=== PATIENT | male | born 1940 | race Caucasian/White ===

== ENCOUNTER 2018-03-12 11:12 | Inpatient (IN) | payer MEDICARE, BC ==
--- NOTE | 2018-03-12 12:45 | ED ---
General Adult HPI - General Chief complaint: Skin/Abscess/Foreign Body Stated complaint: Infection Time Seen by Provider: 03/12/18 12:01 Source: patient, RN notes reviewed Mode of arrival: ambulatory Limitations: no limitations - History of Present Illness Initial comments: Patient 78-year-old male presented to the emergency room today with a chief complaint of redness swelling to the right side of the abdominal wall. He does admit that symptoms started with a small bump approximately 6 weeks ago. He saw his doctor in [place]. He states had a MRI performed. He states that he is advised to follow up. He states he is currently up here for the summer and does have an appointment with general surgeon Dr. Boland in 3 days. Patient states that the area has become more red and more swollen and more painful. He has noticed some drainage that he has been putting some gauze because the closed were causing irritation. Patient denies any recent fever, chills, shortness of breath, chest pain, back pain, nausea or vomiting, numbness or tingling, dysuria or hematuria, constipation or diarrhea, headaches or visual changes, or any other complaints. - Related Data Home Medications Medication Instructions Recorded Confirmed Levothyroxine Sodium [Synthroid] 150 mcg PO DAILY 04/12/14 03/12/18 Lisinopril [Prinivil] 10 mg PO DAILY 04/12/14 03/12/18 Multivitamin [Men's Multi-Vitamin] 1 tab PO DAILY 04/12/14 03/12/18 Allergies Allergy/AdvReac Type Severity Reaction Status Date / Time No Known Allergies Allergy Verified 03/12/18 12:03 Review of Systems ROS Statement: Those systems with pertinent positive or pertinent negative responses have been documented in the HPI. ROS Other: All systems not noted in ROS Statement are negative. Past Medical History Past Medical History: Hypertension, Thyroid Disorder Additional Past Medical History / Comment(s): prostate cancer History of Any Multi-Drug Resistant Organisms: None Reported Past Surgical History: Cholecystectomy, Hernia Repair, Orthopedic Surgery Additional Past Surgical History / Comment(s): inguinal, partial thyroidectomy, bilateral knee replacement Past Anesthesia/Blood Transfusion Reactions: No Reported Reaction Past Psychological History: No Psychological Hx Reported Smoking Status: Former smoker Past Alcohol Use History: Occasional Past Drug Use History: None Reported General Exam - General Exam Comments Initial Comments: General: The patient is awake and alert, in no distress, and does not appear acutely ill. Eye: Pupils are equal, round and reactive to light, extra-ocular movements are intact. No nystagmus. There is normal conjunctiva bilaterally. No signs of icterus. Ears, nose, mouth and throat: There are moist mucous membranes and no oral lesions. Neck: The neck is supple, there is no tenderness or JVD. Cardiovascular: There is a regular rate and rhythm. No murmur, rub or gallop is appreciated. Respiratory: Lungs are clear to auscultation, respirations are non-labored, breath sounds are equal. No wheezes, stridor, rales, or rhonchi. Gastrointestinal: Patient does have abscess to the right side of the abdominal wall. Measures 8 cm across. There is firmness locally and surrounding the area. tender on exam. No rebound tenderness. No guarding. Musculoskeletal: Normal ROM, no tenderness. Strength 5/5. Sensation intact. Pulses equal bilaterally 2+. Neurological: A&O x 3. CN II-XII intact, There are no obvious motor or sensory deficits. Coordination appears grossly intact. Speech is normal. Skin: Skin is warm and dry and no rashes or lesions are noted. Psychiatric: Cooperative, appropriate mood & affect, normal judgment. Limitations: no limitations Course Vital Signs 03/12/18 03/12/18 11:32 14:01 Temperature 98.4 F Pulse Rate 69 53 L Respiratory 18 18 Rate Blood Pressure 113/67 140/73 O2 Sat by Pulse 99 100 Oximetry Medical Decision Making - Medical Decision Making Patient's CT abdomen and pelvis reviewed and shows 1. Large area of abdominal soft tissue density in the right upper quadrant along the lateral margin of the liver extending into a craniocaudal dimension of 15 cm. There also appears to be extension into the subcutaneous tissue measuring a maximum thickness 6.5 cm extends to the epidermis within the right upper quadrant. Skin thickening subcutaneous steamy are noted. However, it is reported dictating back to 2011 and appears increased in size therefore neoplasm should be considered in differential diagnosis. There is a noticeable increased size from prior exam 2011. Other etiologies include inflammatory conditions and superimposed cellulitis of foot well with small tiny central abscess measuring 1.8 cm. 2. Pathological adenopathy seen in the retroperitoneal and right iliac chain attenuation. Patient has seen Dr. Boland past for previous surgery. Have an appointment with his office this coming Tuesday. Patient states that he came in because there was increased pain and some drainage. He felt that he could not wait any longer for this. Patient's labs been reviewed. Patient started on antibiotics of Zosyn. Case discussed with attending physician Dr. Garcia clinic to discuss case with admitting physician Dr. Boland admit the patient. - Lab Data Result diagrams: 03/12/18 12:44 03/12/18 12:44 Lab Results 03/12/18 03/12/18 03/12/18 Range/Units 12:44 12:44 12:44 WBC 8.4 (3.8-10.6) k/uL RBC 4.81 (4.30-5.90) m/uL Hgb 11.9 L (13.0-17.5) gm/dL Hct 37.9 L (39.0-53.0) % MCV 78.7 L (80.0-100.0) fL MCH 24.7 L (25.0-35.0) pg MCHC 31.4 (31.0-37.0) g/dL RDW 16.6 H (11.5-15.5) % Plt Count 267 (150-450) k/uL Neutrophils % 86 % Lymphocytes % 8 % Monocytes % 4 % Eosinophils % 1 % Basophils % 0 % Neutrophils # 7.2 (1.3-7.7) k/uL Lymphocytes # 0.7 L (1.0-4.8) k/uL Monocytes # 0.3 (0-1.0) k/uL Eosinophils # 0.1 (0-0.7) k/uL Basophils # 0.0 (0-0.2) k/uL Hypochromasia Moderate Anisocytosis Slight Microcytosis Slight ESR 44 H (0-15) mm/hr Sodium 140 (137-145) mmol/L Potassium 4.6 (3.5-5.1) mmol/L Chloride 102 (98-107) mmol/L Carbon Dioxide 26 (22-30) mmol/L Anion Gap 12 mmol/L BUN 28 H (9-20) mg/dL Creatinine 1.20 (0.66-1.25) mg/dL Est GFR (CKD-EPI)AfAm 67 (>60 ml/min/1.73 sqM) Est GFR (CKD-EPI)NonAf 58 (>60 ml/min/1.73 sqM) Glucose 86 (74-99) mg/dL Calcium 9.4 (8.4-10.2) mg/dL Total Bilirubin 0.3 (0.2-1.3) mg/dL AST 21 (17-59) U/L ALT 27 (21-72) U/L Alkaline Phosphatase 84 (38-126) U/L C-Reactive Protein 50.9 H (<10.0) mg/L Total Protein 7.0 (6.3-8.2) g/dL Albumin 3.8 (3.5-5.0) g/dL Urine Color Yellow Urine Appearance Clear (Clear) Urine pH 6.0 (5.0-8.0) Ur Specific [place] 1.020 (1.001-1.035) Urine Protein Negative (Negative) Urine Glucose (UA) Negative (Negative) Urine Ketones Negative (Negative) Urine Blood Negative (Negative) Urine Nitrite Negative (Negative) Urine Bilirubin Negative (Negative) Urine Urobilinogen <2.0 (<2.0) mg/dL Ur Leukocyte Esterase Negative (Negative) Disposition Clinical Impression: Abdominal abscess Disposition: ADMITTED IP TO THIS HOSP Condition: Stable Referrals: Narinder Mendez MD [Primary Care Provider] - 1-2 days Time of Disposition: 15:12
[2018-03-12 12:58] LABS: Anisocytosis Slight; Basophils % (A) 0 %; Eosinophils # (A) 0.1 k/uL (0-0.7); Eosinophils % (A) 1 %; HCT 37.9 % (39.0-53.0); HGB 11.9 gm/dL (13.0-17.5); Hypochromasia Moderate; Lymphocytes # (A) 0.7 k/uL (1.0-4.8); Lymphocytes % (A) 8 %; MCH 24.7 pg (25.0-35.0); MCHC 31.4 g/dL (31.0-37.0); MCV 78.7 fL (80.0-100.0); Mean Platelet Volume 6.1; Microcytosis Slight; Monocytes # (A) 0.3 k/uL (0-1.0); Monocytes % (A) 4 %; Neutrophils # (A) 7.2 k/uL (1.3-7.7); Neutrophils % (A) 86 %; Platelet Count 267 k/uL (150-450); RBC 4.81 m/uL (4.30-5.90); RDW 16.6 % (11.5-15.5); WBC 8.4 k/uL (3.8-10.6)
[2018-03-12 13:01] LABS: Appearance,Urine Clear (Clear); Bilirubin,Urine Negative (Negative); Blood,Urine Negative (Negative); Color,Urine Yellow; Glucose,Urine (UA) Negative (Negative); Ketones,Urine Negative (Negative); Leukocyte Esterase,Urine Negative (Negative); Nitrite,Urine Negative (Negative); Protein,Urine Negative (Negative); Urobilinogen,Urine <2.0 mg/dL (<2.0)
[2018-03-12 13:23] LABS: Albumin 3.8 g/dL (3.5-5.0); C Reactive Protein 50.9 mg/L (<10.0); Calcium 9.4 mg/dL (8.4-10.2); Potassium 4.6 mmol/L (3.5-5.1); Total Bilirubin 0.3 mg/dL (0.2-1.3)
--- NOTE | 2018-03-12 14:11 | CT ---
EXAMINATION TYPE: CT abdomen pelvis w con DATE OF EXAM: 03/12/2018 COMPARISON: 02/17/2012 HISTORY: Right sided mid abdominal swelling with redness CT DLP: 910.8 mGycm Automated exposure control for dose reduction was used. CONTRAST: CT scan of the abdomen pelvis is performed with IV Contrast, patient injected with 80 mL of Isovue 30 0. FINDINGS- LUNG BASES- No significant abnormality is appreciated. LIVER/GB-postcholecystectomy changes noted.. PANCREAS- No gross abnormality is seen. SPLEEN- No gross abnormality is seen. ADRENALS- No gross abnormality is seen. KIDNEYS/BLADDER-11 cm simple left renal cyst noted. Additional hypodense lesions within both kidneys are most likely related to simple cyst. BOWEL-bowel gas pattern nonspecific. Hiatal hernia noted.. LYMPH NODES-there is pathologic adenopathy in the retroperitoneum measuring a short axis of 2.1 cm wi th numerous lymph nodes in the periaortic region. Pathologic adenopathy in the right iliac chain is a lso noted. Correlate for history of malignancy. 3. There is mild induration of the fat within the right lower quadrant. This is seen adjacent to the area of adenopathy. Appendix is not seen with certainty. Correlate clinically for right lower quadran t inflammatory process.. There also appears to be abnormal soft tissue attenuation along the periumbilical region measuring 1. 4 cm in short axis. This appears separate from the bowel and may represent additional area of adenopa thy or mass. OSSEOUS STRUCTURES-degenerative change of the spine noted.. Facet arthropathy and disc bulging sugges t multilevel canal stenosis. OTHER- there is soft tissue edema overlying the right upper quadrant subcutaneous tissues extending into the musculature. This does extend adjacent to the liver. Tiny fluid component centrally measures 1.8 cm however the area of abnormal soft tissue extends a craniocaudal dimension of 15 cm. Evidence of previous prostate intervention noted. There is soft tissue fullness in the right iliac chain fatoumata tible with pathologic adenopathy measuring 2 cm in short axis. Additional larger lymph node also in t he iliac chain measuring a short axis of 2.6 cm. There is mild induration of the fat suggestive of mi ld inflammatory change. Appendix not seen. IMPRESSION- 1. Large area of abnormal soft tissue density in the right upper quadrant along the lateral margin of the liver extending a craniocaudal dimension of 15 cm. There also appears to be extension into the s ubcutaneous tissues measuring a maximal thickness of 6.5 cm extends to the epidermis within the right upper quadrant. Skin thickening and subcutaneous edema are noted. However, it has been reported dati ng back to 02/07/2012 and appears increased in size therefore neoplasm should be considered in the diff erential diagnosis. There is a noticeable increase in size from the prior exam 2011. Other etiologies include inflammatory conditions and superimposed cellulitis or phlegmon with small tiny central absc ess measuring 1.8 cm. Alternatively this could represent a small area of central necrosis of a neopla sm. 2. Pathologic adenopathy seen in the retroperitoneum and right iliac chain attenuation. Correlate for history of malignancy. 3. Large hiatal hernia
[2018-03-12 14:15] LABS: Erythrocyte Sedimentation Rate 44 mm/hr (0-15)
[2018-03-12] MEDS ORDERED: PIPERACILLIN-TAZOBACTAM 3.375 GM in DEXTROSE/WATER 1 50ML.BAG IVPB STA (14:22)
[2018-03-12] MEDS ORDERED: MORPHINE SULFATE 2 MG/ML SYRINGE IV PRN (15:13)
[2018-03-12] MEDS ORDERED: ONDANSETRON 4 MG/2 ML VIAL IVP PRN (15:13)
[2018-03-12] MEDS ORDERED: SODIUM CHLORIDE 0.9% 1,000 ML IV ONE (15:13)
[2018-03-12] MEDS ORDERED: NALOXONE 0.4 MG/ML 1 ML VIAL IV PRN (15:13)
--- NOTE | 2018-03-12 16:14 | US ---
EXAMINATION TYPE: US abdomen limited DATE OF EXAM: 03/12/2018 COMPARISON: CT 03/12/2018 CLINICAL HISTORY: Pain. Patient has a palpable red lump on his right side. It is extremely tender to the touch. Patient would only allow me to scan at the area of redness for a short time due to pain. t his limited the exam EXAM MEASUREMENTS: Liver Length: 13.0 cm Gallbladder Wall: Surgically absent CBD: 0.9 cm Right Kidney: 10.4 x 5.1 x 5.2 cm Pancreas: Obscured by bowel gas Liver: wnl as visualized Gallbladder: Surgically absent Evidence for sonographic Arreguin's sign: No CBD: wnl post cholecystectomy Right Kidney: Cystic area visualized mid pole measuring 1.2 x 1.6 cm. Unable to visualized in transv erse due to rib shadowing Lateral to the liver, there is a heterogeneous area visualized measuring 14.3 cm. There is some vascu larity within. This area is difficult to visualize with ultrasound. Directly at the area of the patie nt's palpable lump, there appears to be a heterogeneous, hypervascular area visualized. 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 Internal foci of necrosis or fluid is seen on CT is not demonstrated on ultra sound. Percutaneous biopsy could be performed. This is suboptimally imaged due to patient pain and wa s not accurately measured.
[2018-03-12 17:08] VITALS: BMI 26.4
[2018-03-12] MEDS ORDERED: KETOROLAC 30 MG/ML 1 ML VIAL ONE (23:31)
[2018-03-12] MEDS: PIPERACILLIN-TAZOBACTAM 3.375 GM in DEXTROSE/WATER 1 50ML.BAG IVPB SCH (23:37)
[2018-03-13] MEDS: PIPERACILLIN-TAZOBACTAM 3.375 GM in DEXTROSE/WATER 1 50ML.BAG IVPB SCH ×2 (06:19→14:29)
[2018-03-13] MEDS: KETOROLAC 30 MG/ML 1 ML VIAL IVP SCH ×3 (06:19→19:48)
--- NOTE | 2018-03-13 07:18 | P.GSCN ---
History of Present Illness Consult date: 03/13/18 Reason for Consult: Right upper quadrant mass History of present illness: Patient known to our service. He actually has an appointment to see me this coming Tuesday. I spoke with Dr. Santiago about this patient 1-2 weeks ago. In the past we removed a small abdominal wall mass in the left upper quadrant. I don't have those records available to me. Patient states that was benign at that time. He was in [place] when he started noticing a bulge in the right upper quadrant. That was about 6-8 weeks ago. It is enlarging. Over the last week or so there is been increasing redness and now drainage over the last few days. He was also being followed by urology for an elevated prostate specific antigen level. CAT scan performed while he was in [place] showed this mass in the right upper quadrant and retroperitoneal adenopathy. The recent CAT scan shows the mass extending from the perihepatic region through the abdominal wall to the skin level. It is painful. No fevers. White blood cell count normal. Sed rate and CRP both elevated. T-max 99. Review of Systems The patient denies any acute changes in vision or hearing, no dysphagia or odynophagia, no chest pain or shortness of breath, no dysuria or hematuria, no headache, no runny nose, no rectal bleeding or melena, no unexplained weight loss Past Medical History Past Medical History: Hypertension, Thyroid Disorder Additional Past Medical History / Comment(s): prostate cancer with seeds History of Any Multi-Drug Resistant Organisms: None Reported Past Surgical History: Cholecystectomy, Hernia Repair, Orthopedic Surgery Additional Past Surgical History / Comment(s): inguinal, partial thyroidectomy, bilateral knee replacement Past Anesthesia/Blood Transfusion Reactions: No Reported Reaction Past Psychological History: No Psychological Hx Reported Smoking Status: Former smoker Past Alcohol Use History: Occasional Past Drug Use History: None Reported Medications and Allergies Home Medications Medication Instructions Recorded Confirmed Type Levothyroxine Sodium [Synthroid] 150 mcg PO DAILY 04/12/14 03/12/18 History Lisinopril [Prinivil] 10 mg PO DAILY 04/12/14 03/12/18 History Multivitamin [Men's Multi-Vitamin] 1 tab PO DAILY 04/12/14 03/12/18 History Allergies Allergy/AdvReac Type Severity Reaction Status Date / Time No Known Allergies Allergy Verified 06/10/18 16:15 Surgical - Exam Vital Signs Temp Pulse Resp BP Pulse Ox 98.4 F 69 18 113/67 99 03/12/18 11:32 03/12/18 11:32 03/12/18 11:32 03/12/18 11:32 03/12/18 11:32 Physical exam: General: Well-developed, well-nourished HEENT: Normocephalic, sclerae nonicteric Abdomen: Mass right upper quadrant with erythema and several areas of purulent drainage, mildly tender, nondistended Extremities: No edema Neuro: Alert and oriented Results - Labs 03/12/18 12:44 03/12/18 12:44 Abnormal Lab Results - Last 24 Hours (Table) 03/12/18 03/12/18 Range/Units 12:44 12:44 Hgb 11.9 L (13.0-17.5) gm/dL Hct 37.9 L (39.0-53.0) % MCV 78.7 L (80.0-100.0) fL MCH 24.7 L (25.0-35.0) pg RDW 16.6 H (11.5-15.5) % Lymphocytes # 0.7 L (1.0-4.8) k/uL ESR 44 H (0-15) mm/hr BUN 28 H (9-20) mg/dL C-Reactive Protein 50.9 H (<10.0) mg/L Diabetes panel 03/12/18 Range/Units 12:44 Sodium 140 (137-145) mmol/L Potassium 4.6 (3.5-5.1) mmol/L Chloride 102 (98-107) mmol/L Carbon Dioxide 26 (22-30) mmol/L BUN 28 H (9-20) mg/dL Creatinine 1.20 (0.66-1.25) mg/dL Glucose 86 (74-99) mg/dL Calcium 9.4 (8.4-10.2) mg/dL AST 21 (17-59) U/L ALT 27 (21-72) U/L Alkaline Phosphatase 84 (38-126) U/L Total Protein 7.0 (6.3-8.2) g/dL Albumin 3.8 (3.5-5.0) g/dL Calcium panel 03/12/18 Range/Units 12:44 Calcium 9.4 (8.4-10.2) mg/dL Albumin 3.8 (3.5-5.0) g/dL Pituitary panel 03/12/18 Range/Units 12:44 Sodium 140 (137-145) mmol/L Potassium 4.6 (3.5-5.1) mmol/L Chloride 102 (98-107) mmol/L Carbon Dioxide 26 (22-30) mmol/L BUN 28 H (9-20) mg/dL Creatinine 1.20 (0.66-1.25) mg/dL Glucose 86 (74-99) mg/dL Calcium 9.4 (8.4-10.2) mg/dL Adrenal panel 03/12/18 Range/Units 12:44 Sodium 140 (137-145) mmol/L Potassium 4.6 (3.5-5.1) mmol/L Chloride 102 (98-107) mmol/L Carbon Dioxide 26 (22-30) mmol/L BUN 28 H (9-20) mg/dL Creatinine 1.20 (0.66-1.25) mg/dL Glucose 86 (74-99) mg/dL Calcium 9.4 (8.4-10.2) mg/dL Total Bilirubin 0.3 (0.2-1.3) mg/dL AST 21 (17-59) U/L ALT 27 (21-72) U/L Alkaline Phosphatase 84 (38-126) U/L Total Protein 7.0 (6.3-8.2) g/dL Albumin 3.8 (3.5-5.0) g/dL Assessment and Plan (1) Abdominal wall mass Current Visit: Yes Status: Acute Code(s): R22.2 - LOCALIZED SWELLING, MASS AND LUMP, TRUNK SNOMED Code(s): 224624428 (2) Abdominal wall mass of right upper quadrant Narrative/Plan: Options discussed with the patient and his family. We'll proceed with incision and drainage and biopsy of this abdominal wall mass given the purulent drainage identified. It is possible that this is a necrotizing tumor that has become secondarily infected. We'll also consult oncology at this time. Surgery will be scheduled for this afternoon. Risks of bleeding, infection, poor healing, and pain were reviewed. He understands and wishes to proceed. Current Visit: Yes Status: Acute Code(s): R19.01 - RIGHT UPPER QUADRANT ABDOMINAL SWELLING, MASS AND LUMP SNOMED Code(s): 643722339
[2018-03-13 08:26] LABS: Anisocytosis Slight; Basophils % (A) 0 %; Eosinophils % (A) 0 %; HCT 34.3 % (39.0-53.0); HGB 10.4 gm/dL (13.0-17.5); Hypochromasia Slight; Lymphocytes # (A) 0.6 k/uL (1.0-4.8); Lymphocytes % (A) 8 %; MCHC 30.4 g/dL (31.0-37.0); MCV 78.9 fL (80.0-100.0); Microcytosis Slight; Monocytes # (A) 0.3 k/uL (0-1.0); Monocytes % (A) 4 %; Neutrophils % (A) 86 %; Platelet Count 240 k/uL (150-450); RBC 4.35 m/uL (4.30-5.90); RDW 16.4 % (11.5-15.5); WBC 8.1 k/uL (3.8-10.6)
[2018-03-13 08:31] LABS: Albumin 2.9 g/dL (3.5-5.0); Calcium 8.9 mg/dL (8.4-10.2); Potassium 4.5 mmol/L (3.5-5.1); Total Bilirubin 0.7 mg/dL (0.2-1.3); Total Protein 5.6 g/dL (6.3-8.2)
[2018-03-13] MEDS: MORPHINE SULFATE 2 MG/ML SYRINGE IVP PRN ×2 (10:43→17:28)
--- NOTE | 2018-03-13 11:24 | P.HPIM ---
History of Present Illness H&P Date: 03/13/18 Chief Complaint: abdominal wall abscess 78-year-old male who presented to the emergency room with a chief complaint of increasing pain and redness to a abdominal mass. The patient reports he noticed a small red bump to his right upper abdominal quadrant about 6-8 weeks ago. The patient has been living in [place]. He states he saw a physician assistant professor of spanish down there and he was advised to follow-up when he returns to [place]. He reports increased pain and tenderness of the area, increased swelling, increased erythema, and purulent drainage. He states he had an appointment to see Dr. Boland on 03/15/2018 but the pain was so significant that he presented to the emergency room for further evaluation. He reports having a small mass of his left lower quadrant that was removed by Dr. Boland a few years ago. The patient also reports he follows outpatient with a urologist for elevated PSA. The patient does report a recent weight loss of approximately 10 pounds. The patient has a history of hypertension and hypothyroidism. He reports cataract surgery 2 weeks ago of his right eye. Surgical history also includes inguinal hernia repair and bilateral knee replacements. The patient is a former cigarette smoker. CT abdomen and pelvis: Large area of abnormal soft tissue density in the right upper quadrant along the lateral margin of the the liver measuring 15 cm. There also appears to be extension into the subcutaneous tissues measuring a maximum thickness of 6.5 cm extends to the epidermis within the right upper quadrant. Skin thickening and subcutaneous edema are noted. However it has been reported dating back to 02/07/2012 and appears increased in size therefore neoplasm should be considered in the differential diagnosis. Pathologic adenopathy seen in the retroperitoneum and right iliac chain attenuation. Large hiatal hernia. Laboratory data: WBC 8.4. Hemoglobin 11.9. Platelet count 267. Sodium 140. Potassium 4.6. BUN 28. Creatinine 1.20. ESR 44. C-reactive protein 50.9. Urinalysis is unremarkable. The patient was admitted to the hospital under the care of Dr. Mendez. Consultations were placed to Dr. Boland. Review of Systems GENERAL: Patient denies fever. Denies chills. EYES: Denies blurred vision. Denies vision changes. Denies eye pain. EARS, NOSE, MOUTH, & THROAT: Denies headache. Denies sore throat. Denies ear pain. RESPIRATORY: Denies cough. Denies shortness of breath. Denies sputum production. Denies hemoptysis. CARDIOVASCULAR: Denies chest pain or pressure. Denies palpitations. Denies arrhythmias. GASTROINTESTINAL: Denies abdominal pain. Denies diarrhea. Denies constipation. Denies nausea. Denies vomiting. Denies heartburn. Denies blood in the stool. GENITOURINARY: Denies urinary frequency. Denies burning. Denies dysuria. Denies cloudy urine. Denies blood in the urine. MUSCULOSKELETAL: Denies myalgias. Denies joint swelling. Denies decreased range of motion beyond patients baseline. INTEGUMENTARY: Positive for mass of right upper quadrant. Reports increased swelling, pain, tenderness, and purulent drainage. PSYCHIATRIC: Denies suicidal or homicial ideations. ENDOCRINE: Denies weight change. Denies polydipsia. Denies polyuria. HEMATOLOGIC: Denies bleeding disorders. Past Medical History Past Medical History: Hypertension, Thyroid Disorder Additional Past Medical History / Comment(s): prostate cancer with seeds History of Any Multi-Drug Resistant Organisms: None Reported Past Surgical History: Cholecystectomy, Hernia Repair, Orthopedic Surgery Additional Past Surgical History / Comment(s): inguinal, partial thyroidectomy, bilateral knee replacement Past Anesthesia/Blood Transfusion Reactions: No Reported Reaction Past Psychological History: No Psychological Hx Reported Smoking Status: Former smoker Past Alcohol Use History: Occasional Past Drug Use History: None Reported Medications and Allergies Home Medications Medication Instructions Recorded Confirmed Type Levothyroxine Sodium [Synthroid] 150 mcg PO DAILY 04/12/14 03/12/18 History Lisinopril [Prinivil] 10 mg PO DAILY 04/12/14 03/12/18 History Multivitamin [Men's Multi-Vitamin] 1 tab PO DAILY 04/12/14 03/12/18 History Allergies Allergy/AdvReac Type Severity Reaction Status Date / Time No Known Allergies Allergy Verified 03/12/18 16:15 Physical Exam Vitals: Vital Signs Temp Pulse Pulse Resp BP BP Pulse Ox 03/13/18 01:55 98.9 F 65 16 117/63 96 03/12/18 19:56 99.0 F 64 16 136/77 97 03/12/18 16:31 97.9 F 54 L 18 135/75 99 03/12/18 14:01 53 L 18 140/73 100 03/12/18 11:32 98.4 F 69 18 113/67 99 Intake and Output 03/12/18 03/13/18 03/13/18 22:59 06:59 14:59 Intake Total 620 470 Balance 620 470 Intake: Intake, IV Titration 620 470 Amount Piperacillin-Tazobactam 3 50 50 .375 gm In Dextrose/Water 1 50ml.bag @ 12.5 mls/hr IVPB Q8H [facility] Rx#: [id number] Sodium Chloride 0.9% 1, 570 420 000 ml @ 100 mls/hr IV . Q10H [facility] Rx#:[id number] Other: Voiding Method Toilet # Voids 3 1 # Bowel Movements 0 0 Weight 88.451 kg GENERAL: This is a 78-year-old male in no apparent distress at the time of examination. Pleasant and cooperative. HEENT: Head is atraumatic, normocephalic. Pupils are equal, round, and reactive to light. Sclerae anicteric. Conjunctivae are clear. Mucus membranes of the mouth are moist. Neck is supple. RESPIRATORY: Clear to ausculation. No wheezes, rales, or rhonchi. No use of accessory muscles. Patient maintaining oxygen saturation greater than 92%. No chest wall tenderness is noted on palpation or with deep breathing. CARDIOVASCULAR: Regular rate and rhythm. S1 and S2 noted. No systolic or diastolic murmur auscultated. No JVD noted. No S3 or S4 noted. GASTROINTESTINAL: No distention noted. Abdomen soft and round. Normal active bowel sounds auscultated x 4 quadrants. No pain or tenderness noted upon palpation. INTEGUMENTARY: Large abscess visualized to right upper quadrant with surrounding erythema and edema. Abscess is firm to palpation. Surrounding tissue is also firm to palpation. Pain and tenderness is noted upon palpation of abscess. Areas of purulent drainage are noted. EXTREMITIES: Numerous varicose veins visualized. 2+ peripheral pulses. No evidence of peripheral edema. No calf tenderness noted. NEUROLOGIC: Cranial nerves II-XII intact. PSYCHIATRIC: Awake, alert, and oriented X 3. Appropriate affect. Intact judgement and insight. Results CBC & Chem 7: 03/13/18 07:44 03/13/18 07:44 Labs: Abnormal Lab Results - Last 24 Hours (Table) 03/12/18 03/12/18 03/13/18 Range/Units 12:44 12:44 07:44 Hgb 11.9 L 10.4 L (13.0-17.5) gm/dL Hct 37.9 L 34.3 L (39.0-53.0) % MCV 78.7 L 78.9 L (80.0-100.0) fL MCH 24.7 L 24.0 L (25.0-35.0) pg MCHC 30.4 L (31.0-37.0) g/dL RDW 16.6 H 16.4 H (11.5-15.5) % Lymphocytes # 0.7 L 0.6 L (1.0-4.8) k/uL ESR 44 H (0-15) mm/hr BUN 28 H (9-20) mg/dL Creatinine (0.66-1.25) mg/dL AST (17-59) U/L C-Reactive Protein 50.9 H (<10.0) mg/L Total Protein (6.3-8.2) g/dL Albumin (3.5-5.0) g/dL 03/13/18 Range/Units 07:44 Hgb (13.0-17.5) gm/dL Hct (39.0-53.0) % MCV (80.0-100.0) fL MCH (25.0-35.0) pg MCHC (31.0-37.0) g/dL RDW (11.5-15.5) % Lymphocytes # (1.0-4.8) k/uL ESR (0-15) mm/hr BUN 27 H (9-20) mg/dL Creatinine 1.28 H (0.66-1.25) mg/dL AST 15 L (17-59) U/L C-Reactive Protein (<10.0) mg/L Total Protein 5.6 L (6.3-8.2) g/dL Albumin 2.9 L (3.5-5.0) g/dL Thrombosis Risk Factor Assmnt - Choose All That Apply Any of the Below Risk Factors Present?: No Other Risk Factors: No Thrombosis Risk Factor Assessment Level: Very Low Risk Assessment and Plan Plan: ASSESSMENT: Right upper quadrant abscess, patient to undergo I&D today History of benign left abdominal wall mass, removed by Dr. 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 Boland on consult. Appreciate recommendations and input Patient to undergo I&D today with Dr Boland Continue antibiotics: Zosyn Pain control Oncology consulted. Await further input Home meds as appropriate Monitor labs GI prophylaxis: Protonix 40 mg PO Daily DVT prophylaxis: NAKITA hose to bilateral LE Monitor vital signs and address as appropriate Discharge planning: Patient to return home when stable Further recommendations pending patient's course Nurse practitioner note has been reviewed by physician. Signing provider agrees with the documented findings, assessment, and plan of care.
--- NOTE | 2018-03-13 16:19 | P.CONS ---
History of Present Illness - Reason for Consult Consult date: 03/13/18 Concerning abscess Requesting physician: Mathew Boland - Chief Complaint Abdominal abscess - History of Present Illness 78-year-old male who presented to the emergency room with a chief complaint of increasing abdominal pain and redness to an area of abdomen. The patient reports he noticed a small bump about 6 weeks ago. The bump was non- tender and didnt cause any problems, then it bagan to become redder. The "bump grew in size, broke through skin and now causing pain. He has lost approximately 10lbs in the past 6 months, has been living in [place]. He has a known history of prostate cancer in which he underwent radioactive seeding and external radiation. CT abdomen and pelvis was reviewed: Showed a Large area of abnormal soft tissue density in the right upper quadrant along the lateral margin of the the liver measuring 15 cm. There also appears to be extension into the subcutaneous tissues measuring a maximum thickness of 6.5 cm extends to the epidermis within the right upper quadrant. Soft Tissue density was monitored since 2011, although now with increased size hematology and oncology have been consulted related to concern for underlying malignancy. Review of Systems A 14 point review of systems assessed and completed and all negative except HPI Past Medical History Past Medical History: Hypertension, Thyroid Disorder Additional Past Medical History / Comment(s): prostate cancer with seeds History of Any Multi-Drug Resistant Organisms: None Reported Past Surgical History: Cholecystectomy, Hernia Repair, Orthopedic Surgery Additional Past Surgical History / Comment(s): inguinal, partial thyroidectomy, bilateral knee replacement Past Anesthesia/Blood Transfusion Reactions: No Reported Reaction Past Psychological History: No Psychological Hx Reported Smoking Status: Former smoker Past Alcohol Use History: Occasional Past Drug Use History: None Reported Medications and Allergies Home Medications Medication Instructions Recorded Confirmed Type Levothyroxine Sodium [Synthroid] 150 mcg PO DAILY 04/12/14 03/12/18 History Lisinopril [Prinivil] 10 mg PO DAILY 04/12/14 03/12/18 History Multivitamin [Men's Multi-Vitamin] 1 tab PO DAILY 04/12/14 03/12/18 History Allergies Allergy/AdvReac Type Severity Reaction Status Date / Time No Known Allergies Allergy Verified 03/12/18 16:15 Physical Exam Vitals: Vital Signs Temp Pulse Resp BP Pulse Ox 03/13/18 15:00 97.9 F 54 L 18 117/72 97 03/13/18 07:00 97.6 F 56 L 18 117/68 97 03/13/18 01:55 98.9 F 65 16 117/63 96 03/12/18 19:56 99.0 F 64 16 136/77 97 03/12/18 16:31 97.9 F 54 L 18 135/75 99 Intake and Output 03/13/18 03/13/18 03/13/18 06:59 14:59 22:59 Intake Total 470 Balance 470 Intake: Intake, IV Titration 470 Amount Piperacillin-Tazobactam 3 50 .375 gm In Dextrose/Water 1 50ml.bag @ 12.5 mls/hr IVPB Q8H [facility] Rx#: [id number] Sodium Chloride 0.9% 1, 420 000 ml @ 100 mls/hr IV . Q10H [facility] Rx#:[id number] Other: Voiding Method Toilet # Voids 1 3 # Bowel Movements 0 - Constitutional General appearance: average body habitus, cooperative, no acute distress - EENT Eyes: EOMI, PERRLA, dentition normal ENT: hard of hearing, NA/AT, normal oropharynx - Neck Supple trachea midline - Respiratory Respiratory: bilateral: CTA (No increased effort) - Cardiovascular Rhythm: regular Heart sounds: normal: S1, S2 - Gastrointestinal General gastrointestinal: normal bowel sounds, soft, tenderness - Integumentary RUQ abdomen large hard palpable area of abscess like mass protruding through skin - Neurologic Neurologic: CNII-XII intact - Musculoskeletal Musculoskeletal: gait normal, generalized weakness, strength equal bilaterally - Psychiatric Psychiatric: A&O x's 3, appropriate affect, intact judgment & insight Results CBC & Chem 7: 03/13/18 07:44 03/13/18 07:44 Labs: Abnormal Lab Results - Last 24 Hours (Table) 03/13/18 03/13/18 Range/Units 07:44 07:44 Hgb 10.4 L (13.0-17.5) gm/dL Hct 34.3 L (39.0-53.0) % MCV 78.9 L (80.0-100.0) fL MCH 24.0 L (25.0-35.0) pg MCHC 30.4 L (31.0-37.0) g/dL RDW 16.4 H (11.5-15.5) % Lymphocytes # 0.6 L (1.0-4.8) k/uL BUN 27 H (9-20) mg/dL Creatinine 1.28 H (0.66-1.25) mg/dL AST 15 L (17-59) U/L Total Protein 5.6 L (6.3-8.2) g/dL Albumin 2.9 L (3.5-5.0) g/dL Microbiology - Last 24 Hours (Table) 03/12/18 12:44 Blood Culture - Preliminary Blood No Growth after 24 hours Assessment and Plan Plan: Assessment and Recommendations: 1. Right Abdominal Skin Mass with soft tissue density in liver (increased in size from imaging 2011) - Await I and D and await biopsy results, Depending on results further oncological recs will be provided 2. Microcytic Anemia - Anemia work-up with Iron, B12, Folate, Retics, Ferritin, 3. History of Prostate Cancer - XRT Physician Attestation: I have COmpleted the full history and physcial of this patient and agree with dictation by Brenda Yoon, Dictated as a scribe.
[2018-03-13] MEDS ORDERED: LIDOCAINE 1% INJ 10MG/ML (20 ML MDV) ONE (19:50)
[2018-03-13] MEDS ORDERED: SUCCINYLCHOLINE CHLORIDE 100 MG/5 ML SYR IV ONE (19:50)
[2018-03-13] MEDS ORDERED: PROPOFOL 10 MG/ML 20 ML VIAL IV ONE (19:50)
[2018-03-13] MEDS ORDERED: LACTATED RINGERS 1,000 ML IV ONE (19:50)
[2018-03-13] MEDS ORDERED: fentaNYL (PF) 50 MCG/ML 2 ML AMP ONE (19:50)
[2018-03-13] MEDS ORDERED: ePHEDrine SULFATE/0.9% NACL/PF 50 MG/5 ML SYRINGE IV ONE (19:50)
[2018-03-13] MEDS ORDERED: MIDAZOLAM 2 MG/2 ML VIAL ONE (19:50)
[2018-03-13] MEDS ORDERED: ONDANSETRON 4 MG/2 ML VIAL ONE (19:50)
[2018-03-13] MEDS ORDERED: ceFAZolin 1,000 MG/50 ML BAG (PMX) IVPB ONE (20:10)
[2018-03-13] MEDS: MORPHINE SULFATE 4MG/4ML SYRG IVP ONE ×2 (20:55→21:05)
[2018-03-13] MEDS ORDERED: KETOROLAC 30 MG/ML 1 ML VIAL IVP SCH (21:04)
[2018-03-13] MEDS ORDERED: KETOROLAC 30 MG/ML 1 ML VIAL IVP ONE (21:08)
--- NOTE | 2018-03-13 21:42 | P.OP ---
Date of Procedure: 03/13/18 Procedure(s) Performed: PREOPERATIVE DIAGNOSIS: Abdominal wall mass POSTOPERATIVE DIAGNOSIS: Same PROCEDURE: Incision, drainage, and biopsy abdominal wall mass SURGEON: Kya EBL: 10 mL ANESTHESIA: Gen. COMPLICATIONS: None OPERATIVE PROCEDURE: Patient was placed never table in the supine position for the patient was placed under general anesthesia. The right upper quadrant region was prepped and draped in usual sterile fashion. An elliptical incision was made encompassing the skin where there was small pustules present. Dissection through the subcutaneous tissues took place sharply with a scalpel. The tissues underneath the skin did contain some purulence that was cultured. Incision length was approximately 10 cm with a width of 2 cm. The tissue in the subcutaneous tissues appeared neoplastic visibly. The area was debrided and further tissue was sent for biopsy in addition to the initial portion. Bleeding was controlled using electrocautery. There was no obvious extension into the abdomen at this time. The wound was then packed with wet-to-dry Jan roll. DISPOSITION: Stable to recovery room
[2018-03-14] MEDS: KETOROLAC 30 MG/ML 1 ML VIAL IVP SCH ×5 (00:04→23:39)
[2018-03-14] MEDS: PIPERACILLIN-TAZOBACTAM 3.375 GM in DEXTROSE/WATER 1 50ML.BAG IVPB SCH ×4 (00:05→22:35)
[2018-03-14] MEDS: SODIUM CHLORIDE 0.9% 1,000 ML IV SCH ×3 (01:45→22:34)
[2018-03-14] MEDS: LEVOTHYROXINE 75 MCG TAB PO SCH (06:34)
[2018-03-14] MEDS: PANTOPRAZOLE 40 MG TABLET PO SCH (09:58)
[2018-03-14] MEDS: LISINOPRIL 10 MG TAB PO SCH (09:58)
--- NOTE | 2018-03-14 10:30 | P.PN ---
Subjective Progress Note Date: 03/14/18 78-year-old male who presented to the emergency room with a chief complaint of increasing pain and redness to a abdominal mass. The patient reports he noticed a small red bump to his right upper abdominal quadrant about 6-8 weeks ago. The patient has been living in [place]. He states he saw a physician health education assistant down there and he was advised to follow-up when he returns to [place]. He reports increased pain and tenderness of the area, increased swelling, increased erythema, and purulent drainage. He states he had an appointment to see Dr. Boland on 03/15/2018 but the pain was so significant that he presented to the emergency room for further evaluation. He reports having a small mass of his left lower quadrant that was removed by Dr. Boland a few years ago. The patient also reports he follows outpatient with a urologist for elevated PSA. The patient does report a recent weight loss of approximately 10 pounds. The patient has a history of hypertension and hypothyroidism. He reports cataract surgery 2 weeks ago of his right eye. Surgical history also includes inguinal hernia repair and bilateral knee replacements. The patient is a former cigarette smoker. CT abdomen and pelvis: Large area of abnormal soft tissue density in the right upper quadrant along the lateral margin of the the liver measuring 15 cm. There also appears to be extension into the subcutaneous tissues measuring a maximum thickness of 6.5 cm extends to the epidermis within the right upper quadrant. Skin thickening and subcutaneous edema are noted. However it has been reported dating back to 02/07/2012 and appears increased in size therefore neoplasm should be considered in the differential diagnosis. Pathologic adenopathy seen in the retroperitoneum and right iliac chain attenuation. Large hiatal hernia. Laboratory data: WBC 8.4. Hemoglobin 11.9. Platelet count 267. Sodium 140. Potassium 4.6. BUN 28. Creatinine 1.20. ESR 44. C-reactive protein 50.9. Urinalysis is unremarkable. The patient was admitted to the hospital under the care of Dr. Mendez. Consultations were placed to Dr. Boland. 03/14/2018 Patient seen and examined on rounds with Dr. Mendez. Patient is awake and alert. Patient underwent I&D yesterday with Dr. Peters of right quadrant abdominal abscess. Biopsy results are pending. Patient states his pain is much better today. Dressing is present to abdomen with drainage noted. Hematology is on consult and is following. Patient denies chest pain or pressure. Denies shortness of breath. Denies nausea or vomiting. Vital signs remain stable. Objective - Vital Signs Vital signs: Vital Signs Temp 97.7 F 03/14/18 08:22 Pulse 53 L 03/14/18 08:22 Resp 16 03/14/18 08:22 BP 110/65 03/14/18 08:22 Pulse Ox 96 03/14/18 08:22 Intake & Output 03/13/18 03/14/18 03/14/18 18:59 06:59 18:59 Intake Total 1967 258 Output Total 510 Balance 1457 258 Weight 88.451 kg Intake: IV 300 Intake, IV Titration 1287 Amount Lactated Ringers 1,000 ml 687 As IV .[facility] Rx#: [id number] Piperacillin-Tazobactam 3 100 .375 gm In Dextrose/Water 1 50ml.bag @ 12.5 mls/hr IVPB Q8H [facility] Rx#: [id number] Sodium Chloride 0.9% 1, 500 000 ml @ 100 mls/hr IV . Q10H [facility] Rx#:[id number] Oral 380 258 Output: Urine 500 Estimated Blood Loss 10 Other: Voiding Method Toilet Toilet # Voids 3 2 # Bowel Movements 0 - Exam GENERAL: This is a 78-year-old male in no apparent distress at the time of examination. Pleasant and cooperative. HEENT: Head is atraumatic, normocephalic. Pupils are equal, round, and reactive to light. Sclerae anicteric. Conjunctivae are clear. Mucus membranes of the mouth are moist. Neck is supple. RESPIRATORY: Clear to ausculation. No wheezes, rales, or rhonchi. No use of accessory muscles. Patient maintaining oxygen saturation greater than 92%. No chest wall tenderness is noted on palpation or with deep breathing. CARDIOVASCULAR: Regular rate and rhythm. S1 and S2 noted. No systolic or diastolic murmur auscultated. No JVD noted. No S3 or S4 noted. GASTROINTESTINAL: No distention noted. Abdomen soft and round. Normal active bowel sounds auscultated x 4 quadrants. INTEGUMENTARY: Dressing noted to right upper quadrant with drainage present on dressing. EXTREMITIES: Numerous varicose veins visualized. 2+ peripheral pulses. No evidence of peripheral edema. No calf tenderness noted. NEUROLOGIC: Cranial nerves II-XII intact. PSYCHIATRIC: Awake, alert, and oriented X 3. Appropriate affect. Intact judgement and insight. - Labs CBC & Chem 7: 03/13/18 07:44 03/13/18 07:44 Labs: Microbiology - Last 24 Hours (Table) 03/13/18 20:13 Gram Stain - Preliminary Abdomen Wound Culture - Preliminary 03/13/18 20:13 Anaerobic Culture - Preliminary Abdomen 03/12/18 12:44 Blood Culture - Preliminary Blood No Growth after 24 hours Assessment and Plan Plan: ASSESSMENT: Right upper quadrant abscess, s/p I&D History of benign left abdominal wall mass, removed by Dr. 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 Boland on consult. Appreciate recommendations and input Await biopsy results Continue antibiotics: Zosyn Pain control Oncology consulted. Appreciate recommendations and input Home meds as appropriate Monitor labs GI prophylaxis: Protonix 40 mg PO Daily DVT prophylaxis: NAKITA hose to bilateral LE Monitor vital signs and address as appropriate Discharge planning: Patient to return home when stable Further recommendations pending patient's course Nurse practitioner note has been reviewed by physician. Signing provider agrees with the documented findings, assessment, and plan of care.
--- NOTE | 2018-03-14 11:39 | CDI ---
Last Revision, September 2017 Documentation Clarification Form Date: 03/14/18 From: Nichole Banegas RN, CCDS Admit Date: 03/12/2018 3:09:00 PM Patient Name: Neida Mcadams Visit Number: [id number] ATTENTION: The Clinical Documentation Specialists (CDI) and [facility] Coding Staff appreciate your assistance in clarifying documentation. Please respond to the clarification below the line at the bottom and electronically sign. The CDI & [facility] Coding staff will review the response and follow-up if needed. Please note: Queries are made part of the Legal Health Record. If you have any questions, please contact the author of this message via ITS. Dr. Boland Per your progress notes/operative note, a debridement was performed on 03/13/18. History/Risk Factors: RUQ abd wall mass with increased redness Clinical Indicators: 03/13 OP report: "Dissection through the subcutaneous tissues took place sharply with a scalpel. The tissues underneath the skin did contain some purulence that was cultured. Incision length was approximately 10 cm with a width of 2 cm. The tissue in the subcutaneous tissues appeared neoplastic visibly. The area was debrided and further tissue was sent for biopsy." Treatment: Dissection and debridement sharply Five elements required for accurate and compliant documentation of a debridement : 1. Technique used (e.g., excisional, excised, cutting, etc.) 2. Instrument(s) used (e.g., scalpel, curette, etc.) 3. Nature of the tissue removed (e.g., necrotic, devitalized tissues, non- viable tissue, etc.) 4. Appearance and size of the wound (e.g., down to fresh bleeding tissue, 7cm x 10cm, etc.) 5. Depth of the debridement* (e.g., skin, subcutaneous tissue, fascia, muscle , bone, etc.) In order to capture the severity of condition and code the appropriate procedure ; could you please document the following: Excisional debridement (the removal of necrotic, devitalized tissue or slough by means of cutting away of tissue) Non-excisional debridement (the removal of necrotic, devitalized tissue or slough by means of flushing, brushing, or washing. (Irrigation) Other; please specify Unable to determine (no explanation for clinical findings) Please continue to document in your progress notes and discharge summary in order to capture severity of illness and risk of mortality. Include clinical findings that support your diagnosis. In this case the debridement performed was an excisional debridement with removal of tissue. MTDD
[2018-03-14] MEDS: MULTIVITAMINS, THERA 1 EACH TAB PO SCH (12:02)
[2018-03-14] MEDS: HYDROcodone/APAP 7.5-325MG 1 EACH TAB PO PRN ×2 (15:02→22:59)
--- NOTE | 2018-03-14 15:49 | P.PN ---
Subjective Progress Note Date: 03/14/18 Principal diagnosis: Right upper quadrant mass Patient doing better today. He states his pain is improved. Thus far cultures show no bacteria. Patient is afebrile. Objective - Vital Signs Vital signs: Vital Signs Temp 97.6 F 03/14/18 15:00 Pulse 56 L 03/14/18 15:00 Resp 16 03/14/18 15:00 BP 120/67 03/14/18 15:00 Pulse Ox 98 03/14/18 15:00 Intake & Output 03/13/18 03/14/18 03/14/18 18:59 06:59 18:59 Intake Total 1967 498 Output Total 510 Balance 1457 498 Weight 88.451 kg Intake: IV 300 Intake, IV Titration 1287 Amount Lactated Ringers 1,000 ml 687 As IV [facility] Rx#: [id number] Piperacillin-Tazobactam 3 100 .375 gm In Dextrose/Water 1 50ml.bag @ 12.5 mls/hr IVPB Q8H [facility] Rx#: [id number] Sodium Chloride 0.9% 1, 500 000 ml @ 100 mls/hr IV . Q10H [facility] Rx#:[id number] Oral 380 498 Output: Urine 500 Estimated Blood Loss 10 Other: Voiding Method Toilet Toilet Toilet # Voids 3 2 2 # Bowel Movements 0 - Exam Abdomen: Soft, nondistended, mild tenderness, wound site clean - Labs CBC & Chem 7: 03/13/18 07:44 03/13/18 07:44 Labs: Microbiology - Last 24 Hours (Table) 03/12/18 12:44 Blood Culture - Preliminary Blood No Growth after 48 hours 03/13/18 20:13 Gram Stain - Preliminary Abdomen Wound Culture - Preliminary 03/13/18 20:13 Anaerobic Culture - Preliminary Abdomen Assessment and Plan (1) Abdominal wall mass Narrative/Plan: Await cultures and final pathology. Continue pain control. Continue local wound care. Current Visit: Yes Status: Acute Code(s): R22.2 - LOCALIZED SWELLING, MASS AND LUMP, TRUNK SNOMED Code(s): 377015922 (2) Abdominal wall mass of right upper quadrant Current Visit: Yes Status: Acute Code(s): R19.01 - RIGHT UPPER QUADRANT ABDOMINAL SWELLING, MASS AND LUMP SNOMED Code(s): 314193180
[2018-03-14] MEDS: MORPHINE SULFATE 2 MG/ML SYRINGE IVP PRN (15:51)
[2018-03-15] MEDS: KETOROLAC 30 MG/ML 1 ML VIAL IVP SCH ×4 (06:17→23:30)
[2018-03-15] MEDS: PIPERACILLIN-TAZOBACTAM 3.375 GM in DEXTROSE/WATER 1 50ML.BAG IVPB SCH ×3 (06:18→22:29)
[2018-03-15] MEDS: HYDROcodone/APAP 7.5-325MG 1 EACH TAB PO PRN ×2 (06:28→14:14)
[2018-03-15] MEDS: LEVOTHYROXINE 75 MCG TAB PO SCH (07:23)
[2018-03-15] MEDS: PANTOPRAZOLE 40 MG TABLET PO SCH (07:24)
[2018-03-15] MEDS: LISINOPRIL 10 MG TAB PO SCH (08:15)
[2018-03-15] MEDS: SODIUM CHLORIDE 0.9% 1,000 ML IV SCH ×2 (08:15→17:49)
--- NOTE | 2018-03-15 08:35 | P.PN ---
Subjective Progress Note Date: 03/15/18 Principal diagnosis: Right upper quadrant mass Patient still complaining of discomfort at the right upper quadrant mass site. Some serous drainage. Cultures negative thus far. Final pathology pending. Objective - Vital Signs Vital signs: Vital Signs Temp 97.5 F L 03/15/18 07:40 Pulse 54 L 03/15/18 07:40 Resp 16 03/15/18 07:40 BP 130/78 03/15/18 07:40 Pulse Ox 98 03/15/18 07:40 Intake & Output 03/14/18 03/15/18 03/15/18 18:59 06:59 18:59 Intake Total 738 1930 Balance 738 1930 Intake: Intake, IV Titration 850 Amount Piperacillin-Tazobactam 3 50 .375 gm In Dextrose/Water 1 50ml.bag @ 12.5 mls/hr IVPB Q8H [facility] Rx#: [id number] Sodium Chloride 0.9% 1, 800 000 ml @ 100 mls/hr IV . Q10H [facility] Rx#:[id number] Oral 738 1080 Other: Voiding Method Toilet Toilet # Voids 2 2 # Bowel Movements 0 - Exam Abdomen: Soft, nondistended, mild tenderness right upper quadrant, wound clean with serosanguineous drainage - Labs CBC & Chem 7: 03/13/18 07:44 03/13/18 07:44 Labs: Microbiology - Last 24 Hours (Table) 03/12/18 12:44 Blood Culture - Preliminary Blood No Growth after 48 hours Assessment and Plan (1) Abdominal wall mass Narrative/Plan: Await final pathology. Cultures still pending. Continue antibiotics. Continue pain control. Diet as tolerated. Current Visit: Yes Status: Acute Code(s): R22.2 - LOCALIZED SWELLING, MASS AND LUMP, TRUNK SNOMED Code(s): 402923592 (2) Abdominal wall mass of right upper quadrant Current Visit: Yes Status: Acute Code(s): R19.01 - RIGHT UPPER QUADRANT ABDOMINAL SWELLING, MASS AND LUMP SNOMED Code(s): 265298390
--- NOTE | 2018-03-15 09:37 | P.PN ---
Subjective Progress Note Date: 03/15/18 78-year-old male who presented to the emergency room with a chief complaint of increasing pain and redness to a abdominal mass. The patient reports he noticed a small red bump to his right upper abdominal quadrant about 6-8 weeks ago. The patient has been living in [place]. He states he saw a physician credit control assistant down there and he was advised to follow-up when he returns to [place]. He reports increased pain and tenderness of the area, increased swelling, increased erythema, and purulent drainage. He states he had an appointment to see Dr. Boland on 03/15/2018 but the pain was so significant that he presented to the emergency room for further evaluation. He reports having a small mass of his left lower quadrant that was removed by Dr. Boland a few years ago. The patient also reports he follows outpatient with a urologist for elevated PSA. The patient does report a recent weight loss of approximately 10 pounds. The patient has a history of hypertension and hypothyroidism. He reports cataract surgery 2 weeks ago of his right eye. Surgical history also includes inguinal hernia repair and bilateral knee replacements. The patient is a former cigarette smoker. CT abdomen and pelvis: Large area of abnormal soft tissue density in the right upper quadrant along the lateral margin of the the liver measuring 15 cm. There also appears to be extension into the subcutaneous tissues measuring a maximum thickness of 6.5 cm extends to the epidermis within the right upper quadrant. Skin thickening and subcutaneous edema are noted. However it has been reported dating back to 02/07/2012 and appears increased in size therefore neoplasm should be considered in the differential diagnosis. Pathologic adenopathy seen in the retroperitoneum and right iliac chain attenuation. Large hiatal hernia. Laboratory data: WBC 8.4. Hemoglobin 11.9. Platelet count 267. Sodium 140. Potassium 4.6. BUN 28. Creatinine 1.20. ESR 44. C-reactive protein 50.9. Urinalysis is unremarkable. The patient was admitted to the hospital under the care of Dr. Mendez. Consultations were placed to Dr. Boland. 03/14/2018 Patient seen and examined on rounds with Dr. Mendez. Patient is awake and alert. Patient underwent I&D yesterday with Dr. Peters of right quadrant abdominal abscess. Biopsy results are pending. Patient states his pain is much better today. Dressing is present to abdomen with drainage noted. Hematology is on consult and is following. Patient denies chest pain or pressure. Denies shortness of breath. Denies nausea or vomiting. Vital signs remain stable. 03/15/2018 Patient seen and examined at the bedside. Patient states he is having slightly more discomfort to surgical area today, which he relates to the packing. He reports his pain is about a 5/10 and states he recently received [place] which has been helping. He is tolerating PO intake. denies nausea or vomiting. Pathology is currently pending. Patient remains on Zosyn. Vital signs remain stable. Objective - Vital Signs Vital signs: Vital Signs Temp 97.5 F L 03/15/18 07:40 Pulse 54 L 03/15/18 07:40 Resp 16 03/15/18 07:40 BP 130/78 03/15/18 07:40 Pulse Ox 98 03/15/18 07:40 Intake & Output 03/14/18 03/15/18 03/15/18 18:59 06:59 18:59 Intake Total 738 1930 200 Balance 738 1930 200 Intake: Intake, IV Titration 850 Amount Piperacillin-Tazobactam 3 50 .375 gm In Dextrose/Water 1 50ml.bag @ 12.5 mls/hr IVPB Q8H [facility] Rx#: [id number] Sodium Chloride 0.9% 1, 800 000 ml @ 100 mls/hr IV . Q10H [facility] Rx#:[id number] Oral 738 1080 200 Other: Voiding Method Toilet Toilet Toilet # Voids 2 2 # Bowel Movements 0 - Exam GENERAL: This is a 78-year-old male in no apparent distress at the time of examination. Pleasant and cooperative. HEENT: Head is atraumatic, normocephalic. Pupils are equal, round, and reactive to light. Sclerae anicteric. Conjunctivae are clear. Mucus membranes of the mouth are moist. Neck is supple. RESPIRATORY: Clear to ausculation. No wheezes, rales, or rhonchi. No use of accessory muscles. Patient maintaining oxygen saturation greater than 92%. No chest wall tenderness is noted on palpation or with deep breathing. CARDIOVASCULAR: Regular rate and rhythm. S1 and S2 noted. No systolic or diastolic murmur auscultated. No JVD noted. No S3 or S4 noted. GASTROINTESTINAL: No distention noted. Abdomen soft and round. Normal active bowel sounds auscultated x 4 quadrants. INTEGUMENTARY: Dressing noted to right upper quadrant. No drainage noted. EXTREMITIES: Numerous varicose veins visualized. 2+ peripheral pulses. No evidence of peripheral edema. No calf tenderness noted. NEUROLOGIC: Cranial nerves II-XII intact. PSYCHIATRIC: Awake, alert, and oriented X 3. Appropriate affect. Intact judgement and insight. - Labs CBC & Chem 7: 03/13/18 07:44 03/13/18 07:44 Labs: Microbiology - Last 24 Hours (Table) 03/12/18 12:44 Blood Culture - Preliminary Blood No Growth after 48 hours Assessment and Plan Plan: ASSESSMENT: Right upper quadrant abscess, s/p I&D History of benign left abdominal wall mass, removed by Dr. 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 Boland on consult. Appreciate recommendations and input Await biopsy results Continue antibiotics: Zosyn Pain control Oncology consulted. Appreciate recommendations and input Home meds as appropriate Monitor labs GI prophylaxis: Protonix 40 mg PO Daily DVT prophylaxis: NAKITA hose to bilateral LE Monitor vital signs and address as appropriate Discharge planning: Patient to return home when stable Further recommendations pending patient's course Nurse practitioner note has been reviewed by physician. Signing provider agrees with the documented findings, assessment, and plan of care.
[2018-03-15] MEDS: MULTIVITAMINS, THERA 1 EACH TAB PO SCH (11:35)
[2018-03-15] MEDS: MORPHINE SULFATE 2 MG/ML SYRINGE IVP PRN (16:50)
[2018-03-16 03:14] VITALS: RESP 16
[2018-03-16] MEDS: SODIUM CHLORIDE 0.9% 1,000 ML IV SCH ×5 (05:16→13:18)
[2018-03-16] MEDS: KETOROLAC 30 MG/ML 1 ML VIAL IVP SCH ×3 (05:45→17:53)
[2018-03-16] MEDS: PIPERACILLIN-TAZOBACTAM 3.375 GM in DEXTROSE/WATER 1 50ML.BAG IVPB SCH ×2 (05:46→15:15)
[2018-03-16] MEDS: LEVOTHYROXINE 75 MCG TAB PO SCH (05:56)
[2018-03-16] MEDS: LISINOPRIL 10 MG TAB PO SCH (08:46)
[2018-03-16] MEDS: PANTOPRAZOLE 40 MG TABLET PO SCH (08:46)
--- NOTE | 2018-03-16 11:06 | P.PN ---
Subjective Progress Note Date: 03/16/18 78-year-old male who presented to the emergency room with a chief complaint of increasing pain and redness to a abdominal mass. The patient reports he noticed a small red bump to his right upper abdominal quadrant about 6-8 weeks ago. The patient has been living in [place]. He states he saw a physician development assistant down there and he was advised to follow-up when he returns to [place]. He reports increased pain and tenderness of the area, increased swelling, increased erythema, and purulent drainage. He states he had an appointment to see Dr. Boland on 03/15/2018 but the pain was so significant that he presented to the emergency room for further evaluation. He reports having a small mass of his left lower quadrant that was removed by Dr. Boland a few years ago. The patient also reports he follows outpatient with a urologist for elevated PSA. The patient does report a recent weight loss of approximately 10 pounds. The patient has a history of hypertension and hypothyroidism. He reports cataract surgery 2 weeks ago of his right eye. Surgical history also includes inguinal hernia repair and bilateral knee replacements. The patient is a former cigarette smoker. CT abdomen and pelvis: Large area of abnormal soft tissue density in the right upper quadrant along the lateral margin of the the liver measuring 15 cm. There also appears to be extension into the subcutaneous tissues measuring a maximum thickness of 6.5 cm extends to the epidermis within the right upper quadrant. Skin thickening and subcutaneous edema are noted. However it has been reported dating back to 02/07/2012 and appears increased in size therefore neoplasm should be considered in the differential diagnosis. Pathologic adenopathy seen in the retroperitoneum and right iliac chain attenuation. Large hiatal hernia. Laboratory data: WBC 8.4. Hemoglobin 11.9. Platelet count 267. Sodium 140. Potassium 4.6. BUN 28. Creatinine 1.20. ESR 44. C-reactive protein 50.9. Urinalysis is unremarkable. The patient was admitted to the hospital under the care of Dr. Mendez. Consultations were placed to Dr. Boland. 03/14/2018 Patient seen and examined on rounds with Dr. Mendez. Patient is awake and alert. Patient underwent I&D yesterday with Dr. Peters of right quadrant abdominal abscess. Biopsy results are pending. Patient states his pain is much better today. Dressing is present to abdomen with drainage noted. Hematology is on consult and is following. Patient denies chest pain or pressure. Denies shortness of breath. Denies nausea or vomiting. Vital signs remain stable. 03/15/2018 Patient seen and examined at the bedside. Patient states he is having slightly more discomfort to surgical area today, which he relates to the packing. He reports his pain is about a 5/10 and states he recently received [place] which has been helping. He is tolerating PO intake. denies nausea or vomiting. Pathology is currently pending. Patient remains on Zosyn. Vital signs remain stable. 03/16/2018 Patient seen and examined at the bedside. Patient states his pain is tolerable at this time. Denies chest pain. Denies shortness of breath. Denies N/V. Blood cultures are negative at the 72 hour yady. Wound culture has no growth after 48 hours. Pathology report reveals presence of an arterial sized vessel involved by vasculitis, probably reactive and secondary to the surrounding abscess as well as colonization of the abscess cavity by organisms morphologically consistent with Actinomyces series bacteria. Patient states he saw Dr. Junior in the past regarding his left abscess that he had removed but patient reports "they did not find anything". Objective - Vital Signs Vital signs: Vital Signs Temp 98.2 F 03/16/18 08:44 Pulse 56 L 03/16/18 08:44 Resp 16 03/16/18 08:44 BP 121/72 03/16/18 08:44 Pulse Ox 97 03/16/18 08:44 Intake & Output 03/15/18 03/16/18 03/16/18 18:59 06:59 18:59 Intake Total 1200 1620 240 Balance 1200 1620 240 Weight 88.451 kg Intake: Intake, IV Titration 1000 Amount Sodium Chloride 0.9% 1, 1000 000 ml @ 100 mls/hr IV . Q10H [facility] Rx#:[id number] Oral 1200 620 240 Other: Voiding Method Toilet # Voids 1 1 - Exam GENERAL: This is a 78-year-old male in no apparent distress at the time of examination. Pleasant and cooperative. HEENT: Head is atraumatic, normocephalic. Pupils are equal, round, and reactive to light. Sclerae anicteric. Conjunctivae are clear. Mucus membranes of the mouth are moist. Neck is supple. RESPIRATORY: Clear to ausculation. No wheezes, rales, or rhonchi. No use of accessory muscles. Patient maintaining oxygen saturation greater than 92%. No chest wall tenderness is noted on palpation or with deep breathing. CARDIOVASCULAR: Regular rate and rhythm. S1 and S2 noted. No systolic or diastolic murmur auscultated. No JVD noted. No S3 or S4 noted. GASTROINTESTINAL: No distention noted. Abdomen soft and round. Normal active bowel sounds auscultated x 4 quadrants. INTEGUMENTARY: Dressing noted to right upper quadrant. No drainage noted. EXTREMITIES: Numerous varicose veins visualized. 2+ peripheral pulses. No evidence of peripheral edema. No calf tenderness noted. NEUROLOGIC: Cranial nerves II-XII intact. PSYCHIATRIC: Awake, alert, and oriented X 3. Appropriate affect. Intact judgement and insight. - Labs CBC & Chem 7: 03/13/18 07:44 03/13/18 07:44 Labs: Microbiology - Last 24 Hours (Table) 03/13/18 20:13 Anaerobic Culture - Preliminary Abdomen 03/13/18 20:13 Gram Stain - Final Abdomen Wound Culture - Final 03/12/18 12:44 Blood Culture - Preliminary Blood No Growth after 72 hours Assessment and Plan Plan: ASSESSMENT: Right upper quadrant abscess, s/p I&D, pathology reveals actinomyces bacteria History of benign left abdominal wall mass, removed by Dr. 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 Boland on consult. Appreciate recommendations and input Patient has seen Dr. Junior in the past, however he is unavailable for consults at this time. Will consult Dr. Garcia to evaluate patient Continue antibiotics: Zosyn Pain control Oncology consulted. Appreciate recommendations and input Home meds as appropriate Monitor labs GI prophylaxis: Protonix 40 mg PO Daily DVT prophylaxis: NAKITA hose to bilateral LE Monitor vital signs and address as appropriate Discharge planning: Patient to return home when stable Further recommendations pending patient's course Nurse practitioner note has been reviewed by physician. Signing provider agrees with the documented findings, assessment, and plan of care.
[2018-03-16] MEDS: MULTIVITAMINS, THERA 1 EACH TAB PO SCH (12:08)
--- NOTE | 2018-03-16 14:46 | P.PN ---
<ZacBan M - Last Filed: 03/16/18 14:37> Subjective Progress Note Date: 03/16/18 78-year-old male sitting up in a chair. Patient states he's been up ambulating on the unit no nausea no vomiting no shortness of breath no chest pain. Surgical dressing site dry. Patient is to be seen by infectious disease. Path report reviewed colonization of the abscess cavity consistent with actinomyces. Blood cultures have been negative wound culture show no growth after 48 hours Status post 13 of March incision and drainage and biopsy abdominal wall mass Objective - Vital Signs Vital signs: Vital Signs Temp 98.2 F 03/16/18 08:44 Pulse 56 L 03/16/18 08:44 Resp 16 03/16/18 08:44 BP 121/72 03/16/18 08:44 Pulse Ox 97 03/16/18 08:44 Intake & Output 03/15/18 03/16/18 03/16/18 18:59 06:59 18:59 Intake Total 1200 1620 477 Balance 1200 1620 477 Weight 88.451 kg Intake: Intake, IV Titration 1000 Amount Sodium Chloride 0.9% 1, 1000 000 ml @ 100 mls/hr IV . Q10H [facility] Rx#:[id number] Oral 1200 620 477 Other: Voiding Method Toilet # Voids 1 1 - Exam Physical exam 78-year-old [place] male sitting up in a chair states he's been up ambulating on the unit denies nausea vomiting dizziness or lightheadedness adequate air movement bilaterally Heart S1-S2 audible and regular Abdomen soft surgical dressing dry nondistended no nausea no vomiting states tolerating a diet states urinating no difficulty no stool Extremities no edema - Labs CBC & Chem 7: 03/13/18 07:44 03/13/18 07:44 Labs: Microbiology - Last 24 Hours (Table) 03/13/18 20:13 Anaerobic Culture - Preliminary Abdomen 03/13/18 20:13 Gram Stain - Final Abdomen Wound Culture - Final 03/12/18 12:44 Blood Culture - Preliminary Blood No Growth after 72 hours Assessment and Plan Assessment: Impression Incision and drainage and biopsy of an abdominal wall mass done on March 13 with path report revealed actinomyces bacteria Present on admission right upper quadrant abdominal wall mass Plan Continue with the wound care as ordered packed the wound wet-to-dry Kerlix daily Await recommendations infectious disease Pain control DVT and GI prophylaxis The above impression and plan of care have been discussed and directed by signing physician. Ban Frank nurse practitioner acting as scribe for signing physician. <Mathew Boland - Last Filed: 03/16/18 17:38> Objective - Vital Signs Vital signs: Vital Signs Temp 97 F L 03/16/18 15:00 Pulse 54 L 03/16/18 15:00 Resp 16 03/16/18 15:00 BP 158/79 03/16/18 15:00 Pulse Ox 98 03/16/18 15:00 Intake & Output 03/15/18 03/16/18 03/16/18 18:59 06:59 18:59 Intake Total 1200 1620 477 Balance 1200 1620 477 Weight 88.451 kg Intake: Intake, IV Titration 1000 Amount Sodium Chloride 0.9% 1, 1000 000 ml @ 40 mls/hr IV . Q24H [facility] Rx#:[id number] Oral 1200 620 477 Other: Voiding Method Toilet # Voids 1 2 - Labs CBC & Chem 7: 03/13/18 07:44 03/13/18 07:44 Labs: Microbiology - Last 24 Hours (Table) 03/12/18 12:44 Blood Culture - Preliminary Blood No Growth after 96 hours 03/13/18 20:13 Anaerobic Culture - Preliminary Abdomen 03/13/18 20:13 Gram Stain - Final Abdomen Wound Culture - Final Assessment and Plan Assessment: As above. Please refer to discharge summary. (1) Abdominal wall mass Current Visit: Yes Status: Acute Code(s): R22.2 - LOCALIZED SWELLING, MASS AND LUMP, TRUNK SNOMED Code(s): 285879617 (2) Abdominal wall mass of right upper quadrant Current Visit: Yes Status: Acute Code(s): R19.01 - RIGHT UPPER QUADRANT ABDOMINAL SWELLING, MASS AND LUMP SNOMED Code(s): 986553774
[2018-03-16 15:02] VITALS: BP 158/79; PULSE 54; TEMP 97
[2018-03-16] MEDS: MORPHINE SULFATE 2 MG/ML SYRINGE IVP PRN (15:45)
--- NOTE | 2018-03-16 17:40 | P.DS ---
Providers Date of admission: 03/12/18 15:09 Expected date of discharge: 03/16/18 Attending physician: Narinder Mendez Consults: 03/12/18 15:28 Consult Physician Stat Consulting Provider: Mathew Boland Consult Reason/Comments: Abdominal abscess Do you want consulting provider notified?: Already Contacted 03/13/18 07:13 Consult Physician Routine Consulting Provider: Balaji Jones Consult Reason/Comments: Right upper quadrant mass with adenopathy Do you want consulting provider notified?: Yes 03/16/18 10:49 Consult Physician Routine Consulting Provider: Pascale Garcia Consult Reason/Comments: actinomycosis Do you want consulting provider notified?: Yes 03/16/18 12:59 Consult Physician Routine Consulting Provider: Mukul Heaton Consult Reason/Comments: hx of prostate CA, enlarged lymph nodes Do you want consulting provider notified?: Yes Primary care physician: Narinder Mendez - Discharge Diagnosis(es) (1) Abdominal wall mass Patient admitted 4 days ago with a mass in the right upper quadrant. The etiology of this mass was unclear but he did have extension through the abdominal wall clinically with pustules on the skin and was taken for incision and drainage with biopsy of the subcutaneous tissues. Initial impression was that this may represent lymphoma with adenopathy along the right iliac chain present as well. The patient describes a history of a previous lesion being removed from the left upper quadrant in the past. Pathology returned today showing Actinomyces and when this was discussed with the patient he believes that may have been what was found last time several years ago. The patient was also being followed by urology for an increasing PSA level. He is being followed by infectious disease. Wide debridement was advised by infectious disease. 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 Patient has done well during this hospitalization with improving pain control. Local wound care to the wound present within the right upper quadrant. He is post cholecystectomy of note. Case was discussed with the hospitalist service at [facility]. I did discuss this case with his primary care physician as well. Current Visit: Yes Status: Acute (2) Abdominal wall mass of right upper quadrant Current Visit: Yes Status: Acute Patient Condition at Discharge: Stable Plan - Discharge Summary Discharge Rx Participant: Yes New Discharge Prescriptions: No Action Lenpril [Prinivil] 10 mg PO DAILY Levothyroxine Sodium [Synthroid] 150 mcg PO DAILY Multivitamin [Men's Multi-Vitamin] 1 tab PO DAILY Discharge Medication List Levothyroxine Sodium [Synthroid] 150 mcg PO DAILY 04/12/14 [History] Lisinopril [Prinivil] 10 mg PO DAILY 04/12/14 [History] Multivitamin [Men's Multi-Vitamin] 1 tab PO DAILY 04/12/14 [History] Follow up Appointment(s)/Referral(s): [facility], [NON-STAFF] - Narinder Mendez MD [Primary Care Provider] - 1-2 days
[2018-03-16] MEDS ORDERED: AMPICILLIN 2,000 MG in SODIUM CHLORIDE 0.9% 100 ML IVPB SCH (18:00)
--- NOTE | 2018-03-16 20:39 | P.PN ---
Subjective Progress Note Date: 03/16/18 Principal diagnosis: Abdominal Wall Abscess 78-year-old male who presented to the emergency room with a chief complaint of increasing abdominal pain and redness to an area of abdomen. The patient reports he noticed a small bump about 6 weeks ago. The bump was non- tender and didnt cause any problems, then it bagan to become redder. The "bump grew in size, broke through skin and now causing pain. He has lost approximately 10lbs in the past 6 months, has been living in [place]. He has a known history of prostate cancer in which he underwent radioactive seeding and external radiation. CT abdomen and pelvis was reviewed: Showed a Large area of abnormal soft tissue density in the right upper quadrant along the lateral margin of the the liver measuring 15 cm. There also appears to be extension into the subcutaneous tissues measuring a maximum thickness of 6.5 cm extends to the epidermis within the right upper quadrant. Soft Tissue density was monitored since 2011, although now with increased size hematology and oncology have been consulted related to concern for underlying malignancy. 03/16/18 - He was seen and evaluated in follow-up. 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 Q24H AMARJIT Rx#:[id number] Oral 620 657 Other: # Voids 1 2 - Constitutional General appearance: Present: average body habitus, cooperative, no acute distress - EENT Eyes: Present: EOMI, PERRLA, dentition normal ENT: Present: NA/AT, normal oropharynx - Neck Details: supple, trachea midline Neck: Present: normal ROM - Respiratory Respiratory: bilateral: CTA (No increased effort) - Cardiovascular Rhythm: regular Heart sounds: normal: S1, S2 - Gastrointestinal Gastrointestinal Comment(s): Dressing to abdomen CDI General gastrointestinal: Present: normal bowel sounds, soft, tenderness - Integumentary Integumentary: Present: pale - Neurologic Neurologic: Present: CNII-XII intact - Musculoskeletal Musculoskeletal: Present: gait normal, generalized weakness, strength equal bilaterally - Psychiatric Psychiatric: Present: A&O x's 3, appropriate affect, intact judgment & insight - Labs CBC & Chem 7: 03/13/18 07:44 03/13/18 07:44 Labs: Microbiology - Last 24 Hours (Table) 03/12/18 12:44 Blood Culture - Preliminary Blood No Growth after 96 hours 03/13/18 20:13 Anaerobic Culture - Preliminary Abdomen 03/13/18 20:13 Gram Stain - Final Abdomen Wound Culture - Final Assessment and Plan Plan: Assessment and Recommendations: 1. Right Abdominal Skin Mass with soft tissue density in liver (increased in size from imaging 2011) - Await I and D and await biopsy results, Depending on results further oncological recs will be provided - Results did not show evidence of malignancy, this was discussed with patient. He will continue to follow with ID for antibiotic therapy 2. Microcytic Anemia - Anemia work-up with Iron, B12, Folate, Retics, Ferritin, 3. History of Prostate Cancer - XRT Physician Attestation: I have COmpleted the full history and physcial of this patient and agree with dictation by Brenda Yoon, Dictated as a scribe.
--- NOTE | 2018-03-17 07:12 | CONS ---
CONSULTATION DATE OF SERVICE: 03/16/2018. REASON FOR CONSULTATION: Actinomyces abdominal wall. HISTORY OF PRESENT ILLNESS: The patient is a 78-year-old male presenting to the ER at [facility] on 03/12/2018 with chief complaints of redness and swelling to the right side abdominal wall. The patient says that he did have swelling in his right side abdomen that had been going on for a couple of years and has been watched closely in the outpatient setting. However, the last week or 2 he noticed the area becoming more swollen and red and painful. Pain described to more of a throbbing in nature, about 5 to 6/10, and no radiation with surrounding swelling or redness. The patient did have some low-grade fever, but denies any high-grade fever, rigors and chills. With these symptoms the patient was evaluated by the ER physician. On arrival to the ER the patient was afebrile. His white count was normal. The patient did have a CT of abdomen and pelvis completed which did show positive abdomen soft tissue density in the right upper quadrant along the likely margin of the descending and colonic gutter measuring 15 cm with some extension into subcutaneous tissue 6.5 cm. The patient did have I and D of this done by Dr. Boland. Culture has been obtained which is currently pending. 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 Patient has been treated with Zosyn since he has been admitted to the hospital. REVIEW OF SYSTEMS: CONSTITUTIONAL: Positive for weakness but denies any high-grade fever. EYES: No complaint. ENT: No complaint. RESPIRATORY: No complaint. CARDIOVASCULAR: No complaint. GENITOURINARY: No complaint. GASTROINTESTINAL: As per HPI. MUSCULOSKELETAL: No complaint. INTEGUMENTARY: No complaint. PSYCHOLOGICAL: No complaint. ENDOCRINE: No complaint. NEUROLOGIC: No complaint. PAST MEDICAL HISTORY: Hypertension, hypothyroidism, prostate cancer. PAST SURGICAL HISTORY: Cholecystectomy, hernia repair, partial thyroidectomy, bilateral knee replacement. SOCIAL HISTORY: Remote history of smoking. No drinking or drug use. FAMILY HISTORY: No pertinent findings noticed. ALLERGIES: No known drug allergies. MEDICATIONS: The patient is currently on [place], Toradol, Synthroid, Restoril, morphine sulfate, Theragran, Narcan, Zofran, Protonix, and Zosyn. EXAMINATION: Blood pressure is 158/79 with a pulse of 54, temperature 97.7. He is 98% on room air. General description is an elderly male lying in bed in no distress. No tachypnea or accessory muscle for respiration use. HEENT: Shows pallor, no scleral icterus. Oral mucosa membrane is moist. No pharyngeal erythema or thrush. NECK: Trachea central. No thyromegaly. LUNGS: Unlabored breathing. Clear to auscultation. No wheeze or crackle. HEART: S1, S2. Regular rate and rhythm. ABDOMEN: Soft, no guarding or rigidity. The abdominal wound on the right side with surgical drainage with some surrounding inflammation. No foul smelling drainage. EXTREMITIES: No edema of feet. SKIN EXAMINATION: No rash or mass palpable. NEUROLOGICAL: Patient is awake, alert, oriented x3. Mood and affect normal. LABS: Hemoglobin is 10.4, white count 8.1. BUN of 27, creatinine 1.2. UA has been negative. Culture is currently pending. Last report suspicious for Actinomyces. DIAGNOSTIC IMPRESSION AND PLAN: Patient is admitted to the hospital with right-sided abdominal pain, swelling and groin abscess in a patient who did have chronic swelling in the right upper abdominal area for many years. Biopsy confirmed Actinomyces. Patient's CT was reviewed with the radiologist and did show extensive marked in the right upper quadrant area, especially the liver, and extending in the subcostal space but not invading the diaphragm. PLAN: 1. The patient needs extensive surgical drainage, debridement of this infection. 2. Patient's antibiotic will be adjusted to ampicillin 2 g every 4 hours. 3. Case was discussed in detail with the surgeon who is planning to transfer the patient to tertiary care for more extensive involvement and debridement possible by both surgery and general surgery. The patient's case discussed in detail with the patient as well as his and all his questions were answered. MMODL / IJN: [id number] /
== END 2018-03-16 18:49 | disposition short-term general hospital (02) | DRG 572 ==
LOC: EC 11:12 → 3SUR 15:09
PROVIDERS: ADMIT Family Medicine; ATTEND Family Medicine
PROC: 0JB80ZZ Excision of Abdomen Subcutaneous Tissue and Fascia, Open Approach (ICD-10-PCS; principal; 2018-03-13 15:10)
DX: L02.211 Cutaneous abscess of abdominal wall (principal); R19.01 Right upper quadrant abdominal swelling, mass and lump; K44.9 Diaphragmatic hernia without obstruction or gangrene; I83.90 Asymptomatic varicose veins of unspecified lower extremity; I10 Essential (primary) hypertension; F17.201 Nicotine dependence, unspecified, in remission; R63.4 Abnormal weight loss; R59.0 Localized enlarged lymph nodes; E89.0 Postprocedural hypothyroidism; D50.9 Iron deficiency anemia, unspecified; Z79.899 Other long term (current) drug therapy; Z79.890 Hormone replacement therapy; Z85.46 Personal history of malignant neoplasm of prostate; Z96.653 Presence of artificial knee joint, bilateral; Z90.49 Acquired absence of other specified parts of digestive tract
CPT/HCPCS: 36415; 74177; 76705; 80053; 81003; 85025; 85652; 86140; 87040; 87070; 87075; 87205; 88304; 96365; 99284

== ENCOUNTER 2018-05-08 09:01 | Day surgery (SDC) | payer MEDICARE, BC ==
[2018-05-08 09:25] VITALS: RESP 16
[2018-05-08 09:33] LABS: Mean Platelet Volume 7.1; Platelet Count 235 k/uL (150-450)
[2018-05-08 09:41] LABS: INR 1.1 (<1.2); Prothrombin Time 10.5 sec (9.0-12.0)
--- NOTE | 2018-05-08 11:03 | CT ---
EXAMINATION TYPE: CT core biopsy and fine-needle aspiration lymph node DATE OF EXAM: 05/08/2018 HISTORY: Retroperitoneal adenopathy COMPARISON: CT 03/12/2018 Maximal barrier technique was utilized. The skin overlying a suitable path to the lesion was localiz ed using CT and the overlying skin was prepped and draped. Lidocaine used for local anesthesia. A s kin tuyet made with a scalpel. Using CT guidance, access was gained to the lesion with a 22-gauge nee dle coaxially through a 17-gauge guide. Aspirated specimen submitted to cytology. An additional pass es made with a 22-gauge needle, core biopsy of an obtained with an 18-gauge needle coaxially. 3 pass es were performed in all. Following the procedure no immediate complications. The patient is disch arged in stable condition. Hemostasis achieved. IMPRESSION: SUCCESSFUL CT GUIDED FINE-NEEDLE ASPIRATION AND CORE BIOPSY. PATHOLOGY PENDING. THIS PROCEDURE WAS PERFORMED BY THE UNDERSIGNED.
[2018-05-08 11:38] VITALS: TEMP 97.5
[2018-05-08 14:49] VITALS: BP 113/71; PULSE 64
== END 2018-05-08 14:50 | disposition home or self-care (01) ==
LOC: RADPROMAIN 09:01
PROVIDERS: ATTEND Urology
DX: C79.82 Secondary malignant neoplasm of genital organs (principal)
CPT/HCPCS: 38505; 77012; 85049; 85610; 88173; 88305; 88341; 88342

== ENCOUNTER → 2018-05-26 | Outpatient (CLI) | payer MEDICARE, BC ==
--- NOTE | 2018-05-26 15:41 | NM ---
EXAMINATION TYPE: NM bone scan whole body DATE OF EXAM: 05/26/2018 COMPARISON: NONE HISTORY: Prostate carcinoma staging Delayed whole-body scanning was performed following the injection of 25.5 mCi Tc 99m MDP. Images acq uired 3 hours post injection. FINDINGS: Increased radiotracer accumulation along the supra-acetabular region of the right hemipelvis. Metasta tic disease is not excluded. No additional areas of abnormal radiotracer accumulation identified. Deg enerative uptake about the shoulders, bilateral hands and wrists parenchymal bilateral knees and righ t foot. IMPRESSION: Increased radiotracer accumulation along the supra-acetabular region of the right hemipelvis. Metasta tic disease is not excluded.
== END | disposition home or self-care (01) ==
LOC: RADNMMAIN 10:25
PROVIDERS: ATTEND Urology
DX: C61 Malignant neoplasm of prostate (principal); R94.8 Abnormal results of function studies of other organs and systems
CPT/HCPCS: 78306; A9503

== ENCOUNTER 2019-08-15 10:03 | Day surgery (SDC) | payer MEDICARE, BC ==
[2019-08-13 08:58] VITALS: BMI 27.1
[~2019-08-15 10:03] MED LIST: LACTATED RINGERS 1,000 ML IV SCH; LIDOCAINE 1% 20 ML VIAL (10MG/ML) FOR IV START INTRADERMA PRN
[2019-08-15 10:50] VITALS: RESP 18; TEMP 97.8
[2019-08-15] MEDS ORDERED: LACTATED RINGERS 1,000 ML IV ONE (10:51)
[2019-08-15] MEDS ORDERED: PROPOFOL 10 MG/ML 20 ML VIAL IV ONE (11:32)
--- NOTE | 2019-08-15 12:03 | P.PCN ---
Date of Procedure: 08/15/19 Procedure(s) Performed: Brief history: Patient is a pleasant 79-year-old white male, scheduled for an elective upper endoscopy as well as colonoscopy as a part of evaluation of long-standing history of GERD and intermittent dysphagia to solids for the last 1 year duration. Also noticed change in bowel habits and hence scheduled for colonoscopy today. Procedure performed: Esophagogastroduodenoscopy with biopsy Colonoscopy Preoperative diagnosis: Intermittent dysphagia to solids/black long-standing history of GERD Change in bowel habits Anesthesia: MAC Procedure: After informed consent was obtained from the patient was brought into the endoscopy unit and IV sedation was administered by anesthesia under continuous monitoring. Initially upper endoscopy was done. The Olympus GF 160 video endoscope was inserted inserted into the mouth and esophagus intubated without any difficulty and was gradually advanced into the stomach and duodenum and carefully examined. The bulb and second part of the duodenum appeared normal. The scope was then withdrawn into the stomach adequately insufflated with air and upon careful examination the antrum and body, cardia and fundus appeared normal. In the proximal body the stomach was a 2 the diaphragmatic impression there was a 1.5 cm submucosal polyp that was biopsied. On retroflexion there was a moderate to large size hiatal hernia noted. The scope was then withdrawn into the esophagus. Moderate size hiatal hernia noted. The diaphragmatic impression was located at 45 cm from the incisors. The GE junction was located at 38 cm to the incisors. It appeared regular with no erythema erosions or ulcerations. Rest of the esophagus appeared normal. Biopsies were done from the distal esophagus. Patient tolerated the procedure well. At this time the patient continued to remain sedation. Initial digital rectal examination was normal. Olympus CF 160 video colonoscope was then inserted into the rectum and gradually advanced to the cecum without any difficulty. Careful examination was performed as the scope was gradually being withdrawn. The prep was excellent. The cecum, ascending colon, transverse colon, descending colon, sigmoid colon and rectum appeared normal. Retroflexion was performed in the rectum and no lesions were noted. Patient tolerated the procedure well. Impression: 1. Upper endoscopy revealed moderate size hiatal hernia, and 1.5 cm gastric polyp in the mid body of stomach with no evidence of esophageal stricture 2.. Colonoscopy was within normal limits with no evidence of colitis or colorectal neoplasia Recommendations: Findings of this examination were discussed with the patient as well as her family. He was advised to follow with the biopsy results. He'll be seen in office in 2 weeks. In the meantime he will be started on Prilosec 20 mg daily and was briefly educated about antireflux measures.
[2019-08-15 12:32] VITALS: BP 125/82; PULSE 58
== END 2019-08-15 12:54 | disposition home or self-care (01) ==
LOC: ORWHC2ENDO 10:03
PROVIDERS: ATTEND Internal Medicine Gastroenterology
DX: D3A.092 Benign carcinoid tumor of the stomach (principal); K21.0 Gastro-esophageal reflux disease with esophagitis; K29.50 Unspecified chronic gastritis without bleeding; K25.7 Chronic gastric ulcer without hemorrhage or perforation; K44.9 Diaphragmatic hernia without obstruction or gangrene; R19.4 Change in bowel habit; I10 Essential (primary) hypertension; E07.9 Disorder of thyroid, unspecified; Z87.891 Personal history of nicotine dependence; Z85.46 Personal history of malignant neoplasm of prostate; Z97.2 Presence of dental prosthetic device (complete) (partial); Z79.890 Hormone replacement therapy; Z79.899 Other long term (current) drug therapy
CPT/HCPCS: 88305; 88342; 88341; 45378; 43239; J2704

== ENCOUNTER → 2020-02-21 | Outpatient (CLI) | payer MEDICARE, BC ==
--- NOTE | 2020-02-21 15:04 | NM ---
EXAMINATION TYPE: NM gastric emptying static DATE OF EXAM: 02/21/2020 COMPARISON: NONE HISTORY: Nausea and vomiting Following administration of 2.1 mCi Tc 99m Sulfur Colloid with 4oz egg whites, 2 toast and jelly, 8oz water, projection images of the abdomen were obtained 5min minutes post ingestion. Patient Emptying Values 1 Hour 40% % 2 Hours 83% % 3 Hours 93% % 4 Hours 98% % Gastroesophagel reflux: None IMPRESSION: Gastric emptying: Normal Gastroesophageal reflux: None observed. Gastric emptying normal percentage values: 30 minutes: <70% of retention (> 30% emptying) suggests abnormally fast emptying. 60 minutes: <90% retention (>10% emptying) is normal; less than 30% retention (>70% emptying) suggest s abnormally rapid emptying. 90 minutes: <65% retention (> 35% emptying) is normal. 120 minutes: <60% retention (> 40% emptying) is normal. 180 minutes: <30% retention (> 70% emptying) is normal. Gastric emptying T-1/2: Solid: The normal range is 60-105 minutes Liquid only: Normal range is 10-45 minutes. Liquid only-children: At 60 minutes, normal range is 44-58 % . Liquid only-infants: At 60 minutes, normal range is 32-64 %. Additional references: Gastric Emptying Scintigraphy [email or web address]://[email or web address]
== END | disposition home or self-care (01) ==
LOC: RADNMMAIN 06:47
PROVIDERS: ATTEND Internal Medicine Gastroenterology
DX: R11.2 Nausea with vomiting, unspecified (principal)
CPT/HCPCS: 78264; A9541

== ENCOUNTER → 2020-04-17 | Outpatient (CLI) | payer MEDICARE, BC ==
--- NOTE | 2020-04-17 12:39 | FL ---
Barium swallow HISTORY: Dysphagia Patient was given high density barium to drink area 1 minute 4 seconds fluoroscopy time, 13 intraoper ative images The swallowing mechanism is normal. There is a focal outpouching, collection of contrast present at t he cervical esophagus lower aspect near the cervicothoracic junction. There is a large paraesophageal hiatal hernia with partial intrathoracic stomach. IMPRESSION: Zenker's diverticulum, large hiatal hernia.
== END | disposition home or self-care (01) ==
LOC: RADUSWWP 10:21
PROVIDERS: ATTEND Surgery
DX: K22.5 Diverticulum of esophagus, acquired (principal); K44.9 Diaphragmatic hernia without obstruction or gangrene
CPT/HCPCS: 74220

== ENCOUNTER → 2020-05-07 | Outpatient (CLI) | payer MEDICARE, BC ==
--- NOTE | 2020-05-07 13:31 | CT ---
EXAMINATION TYPE: CT ChestAbdPelvis w con DATE OF EXAM: 05/07/2020 COMPARISON: Prior CT abdomen and pelvis March 12, [address] chest March 15 2013 HISTORY: Metastatic Prostate cancer. Progress study. CT DLP: 990.6 mGycm. Automated Exposure Control for Dose Reduction was Utilized. CONTRAST: CT scan of the thorax, abdomen and pelvis is performed with IV Contrast, patient injected with 80 mL of Isovue 300. FINDINGS: LUNGS: Slightly elevated left hemidiaphragm is redemonstrated. The lungs are grossly clear, there is no concerning parenchymal mass or nodule identified. There is no pleural effusion or pneumothorax s een. The tracheobronchial tree is patent. MEDIASTINUM: Abnormal 1.4 x 1.3 cm mediastinal lymph node posterior to esophagus subcarinal level axi al image 27. There are no additional greater than 1 cm hilar or mediastinal lymph nodes. No cardiom egaly or pericardial effusion is seen. Coronary artery calcification again seen which is noted marke d with underlying coronary artery disease. There is now large hiatal hernia or intrathoracic stomach with abnormal twisting. Ascending aortic aneurysm up to 4.2 cm on image 28. Enlarged right and left p ulmonary arteries, CT findings consistent with underlying pulmonary artery hypertension. LIVER/GB: Cholecystectomy clips are redemonstrated. Abnormal curvilinear soft tissue along the right aspect of liver anteriorly on axial image 61 with curvilinear appearance and more nodular appearance posterior same image shows improvement from most recent CT. PANCREAS: No significant abnormality is seen. SPLEEN: No significant abnormality is seen. ADRENALS: No significant abnormality is seen. KIDNEYS: Persistent large exophytic simple appearing thin-walled cyst left kidney measuring up to 13. 4 cm long axis coronal image 61 with local mass effect. No significant change from prior. Few additio nal smaller thin-walled cysts bilaterally are present. No hydronephrosis noted bilaterally. Some deepa ical thinning in both kidneys is seen. Poorly distended bladder with small new concerning area of 9 t o 10 mm nodularity or thickening left bladder wall axial image 115 and coronal image 46 Thought Sepa rate or away from the newly enlarged prostate gland warrants follow-up. BOWEL: Oral contrast does not reach level of terminal ileum making evaluation distal bowel slightly s uboptimal. No suspicious small or large bowel dilatation. GENITAL ORGANS: Brachytherapy seeds throughout the inferior aspect of the prostate gland are redemons trated. There is interval enlargement of the superior right aspect of prostate gland bulging on bladd er base cranial to these seeds. LYMPH NODES: Persistent abnormal retroperitoneal lymph nodes throughout the abdomen and pelvis. Fairl y stable posterior aortocaval lymph node and a tortuous abdominal aorta midabdomen axial image 73 emiliano sures 2.2 x 1.8 cm versus prior study axial image 36. Inferior to this the 2.5 x 2.1 cm lymph node ra ising aorta anteriorly prior study axial image 45 now measures 1.5 x 1.4 cm current study axial image 79. Fairly stable 3.2 x 2.3 cm right common iliac lymph node axial image 92 versus prior study axial image 55. Improved right external iliac chain adenopathy axial image 104 measuring 3.1 x 1.8 cm vers us prior study 3.4 x 3.3 cm axial image 66. There is however enlarged lymph nodes in the upper abdomen near diaphragm for reference left retrocru ral lymph node measures 1.9 x 1.5 cm for study axial image 56 versus 1.5 x 1.2 cm prior study axial i mage 20. There is abnormal 1.4 cm lymph node posterior to the esophagus subcarinal level axial image 27 outside of field of view on prior study Osseous STRUCTURES: No areas of sclerosis right iliac bone near sacroiliac joint coronal image 69 helena ng with the lumbar spine L1 level coronal image 60 are present. Underlying scoliotic curvature. OTHER: No significant additional abnormality is seen. IMPRESSION: Interval development or progression of osseous metastatic disease. Overall mixed response in the adenopathy of the abdomen and pelvis is thought present. Positive partial treatment response to the abnormal curvilinear soft tissue adjacent to right aspect of liver. New area of concern left l ateral bladder wall noted. Advised cystoscopy follow-up. New fixed intrathoracic stomach.
--- NOTE | 2020-05-07 16:28 | NM ---
EXAMINATION TYPE: NM bone scan whole body DATE OF EXAM: 05/07/2020 COMPARISON: NONE HISTORY: Prostate cancer Delayed whole-body scanning was performed following the injection of 23.4 mCi Tc 99m MDP. Images wer e acquired 3 hours post injection. FINDINGS: There is increased radiotracer accumulation within the posterior medial ninth rib. There is a focal a brianne of radiotracer accumulation within the posterior right eighth rib. There is increased radiotracer accumulation in the lateral seventh rib. This overlaps with the scapular border although this felt t o more likely related to the rib. Findings are suspicious for metastatic disease There is mild uptake within the right posterior L2 vertebral level. There is increased radiotracer accumulation within the left pubic ramus better seen on the posterior view suspicious for metastatic disease. Spot Oblique views demonstrate additional multiple more focal radiotracer accumulation within the ant erior ribs compatible with metastasis. There is some focal uptake at the distal right femur and tibial plateau may be related to the patient 's knee prosthesis. Mild uptake is within the lateral right foot may be degenerative or posttraumatic . COMPARISON: 05/26/2018 whole-body bone scan. Rib uptake suspicious for metastasis is an interval findi ng. The subtle uptake within the right L2 vertebral level is new. Uptake within the iliac wings appea r similar. The uptake within the left pubic ramus is new. Uptake within the foot previously. IMPRESSION: 1. New Areas suspicious for metastatic disease including the posterior left pubic ramus, multiple jose cruz ateral ribs especially noted posterior right ninth rib and posterior lateral left rib.
== END | disposition home or self-care (01) ==
LOC: RADNMMAIN 11:06
PROVIDERS: ATTEND Internal Medicine Hematology & Oncology
DX: R59.9 Enlarged lymph nodes, unspecified (principal); R94.8 Abnormal results of function studies of other organs and systems; C61 Malignant neoplasm of prostate
CPT/HCPCS: 82565; 84520; 71260; 74177; 36415; 78306; A9503; Q9967 ×2

== ENCOUNTER → 2020-12-16 | Outpatient (CLI) | payer MEDICARE, BC ==
[2020-12-16 09:29] LABS: HCT 38.6 % (39.0-53.0); HGB 12.6 gm/dL (13.0-17.5); MCH 30.2 pg (25.0-35.0); MCHC 32.7 g/dL (31.0-37.0); MCV 92.4 fL (80.0-100.0); Mean Platelet Volume 6.8; Platelet Count 190 k/uL (150-450); RBC 4.18 m/uL (4.30-5.90); RDW 13.8 % (11.5-15.5); WBC 4.4 k/uL (3.8-10.6)
[2020-12-16 09:39] LABS: Potassium 3.5 mmol/L (3.5-5.1)
--- NOTE | 2020-12-16 11:58 | CT ---
EXAMINATION TYPE: CT ChestAbdPelvis w con DATE OF EXAM: 12/16/2020 COMPARISON: 05/07/2020 HISTORY: 80-year-old male C6 1, prostate CA follow up TECHNIQUE: Contiguous axial scanning of the chest, abdomen, and pelvis performed with IV Contrast, pa tient injected with 100 mL of Isovue 300. Delayed images through the kidneys were obtained. Coronal/s agittal reconstructions performed. CT DLP: 1077.4 mGycm Automated exposure control for dose reduction was used. FINDINGS: CHEST: Heart upper limits of normal in size without pericardial effusion. Extensive LAD and circumflex coron stephanie artery calcifications are present. Mild aneurysm ascending aorta 4.3 cm. Mild atherosclerotic arch calcifications. Conventional arterial branching anatomy. Prominent 7 mm low right paratracheal lymph node is unchanged. No thoracic lymphadenopathy by CT size criteria. Interval decrease in size of the patient's hernia. Residual small hiatal hernia remains. Minimal biapical pleural parenchymal scarring. Mild centrilobular emphysema. Small right pleural effu justino is new. Small groundglass focus lateral right mid lung remains unchanged on axial image 34. Some strandy atel ectasis in the lower lungs. ABDOMEN: There is soft tissue thickening along the right posterior aspect of the liver measuring 2.6 x 1.8 cm versus 3.1 x 2.2 cm, previously. No new focal liver lesions. Portal venous system is patent. Pneumobilia redemonstrated. Cholecystectomy clips. Adrenal glands, spleen, and pancreas within normal limits. Redemonstrated bilateral renal cysts, very large on the left measuring up to 2.5 cm and 6.6 cm. No dilated small bowel, free fluid, free air. The patient's previous retroperitoneal lymphadenopathy has resolved. Soft tissue nodularity and deep to the umbilicus measuring 2.1 x 1.1 cm is unchanged. Mild to moderate stool burden. Left-sided colonic diverticulosis. Pericolonic inflammatory change. PELVIS: Mild circumferential bladder wall thickening. The previous based thickening and nodularity within the bladder appears to have resolved. Numerous brachytherapy seeds redemonstrated. No abnormal fluid col lection or pelvis or pelvic lymphadenopathy. However, right inguinal lymph nodes show slight increasing size measuring up to 1.2 cm short axis cici carson 7 mm, previously. These can be followed clinically. BONES: Progressive sclerosis upper right sacrum. Similar sclerosis left ischium. Abnormal sclerosis at T12-L 3 levels has progressed and also at T4. Progressive sclerosis involving a small focus in the inferior sternum. Sclerotic hypertrophy involving the right posterior ninth rib at the site of previous lytic soft tiss ue. Progressive sclerosis left posterolateral sixth rib. IMPRESSION: 1. FINDINGS SUGGEST TREATMENT RESPONSE. THE RETROPERITONEAL LYMPHADENOPATHY HAS RESOLVED. THE MURAL B ASED THICKENING AND NODULARITY WITHIN THE BLADDER HAS RESOLVED. LYTIC SOFT TISSUE INVOLVING THE RIGHT POSTERIOR NINTH RIB HAS CHANGED TO SCLEROSIS SUGGESTING HEALING. THERE HAS BEEN PROGRESSIVE SCLEROSI S INVOLVING MULTIPLE VERTEBRAL BODIES THROUGHOUT THE SPINE SUSPECTED TO REFLECT INTERVAL HEALING WALKER GE. THE SOFT TISSUE ALONG THE RIGHT POSTERIOR LIVER IS DECREASING IN SIZE (2.6 X 1.8 CM NOW VERSUS 3. 1 X 2.2 CM, PREVIOUSLY). 2. A SMALL RIGHT PLEURAL EFFUSION, HOWEVER, IS NEW. 3. MULTIPLE RIGHT INGUINAL LYMPH NODES REMAIN NONENLARGED BUT ARE INCREASING IN SIZE COMPARED TO 2019. THESE MEASURE UP TO 1.2 CM SHORT AXIS VERSUS 7 MM, PREVIOUSLY. CLINICAL FOLLOW-UP RECOMMENDED.
--- NOTE | 2020-12-17 15:06 | NM ---
EXAMINATION TYPE: NM bone scan whole body DATE OF EXAM: 12/16/2020 COMPARISON: 05/07/2020 HISTORY: Prostate cancer Delayed whole-body scanning was performed following the injection of 21.3 mCi Tc 99m MDP. Images wer e acquired 4 hours post injection. FINDINGS: There is linear increased signal within the posterior right ninth rib suspicious for metastatic disea se. There are focal areas within the eighth rib on the right. Findings are present previously. The up take within the 6 posterior lateral left rib appears diminished. Mild uptake in the region of T6 and T8 may be new. Focal uptake in the region of the right patella is slightly diminished from comparison . There is uptake within the medial right tibial plateau and within the lateral fifth metatarsal bishop on. Previous focus within the proximal left femur is not easily identified on the current exam. Very subt le change may remain present. Focal uptake within the right L1 and L2 levels appear similar. Within the pelvis there is uptake within the left pubic ramus and the right anterior superior iliac s pine region. The areas appear diminished from comparison. IMPRESSION: 1. New uptake in the region of T6 and T8. Metastatic disease should be considered. 2. Suspicious uptake present previously in the posterior right eighth and ninth ribs and posterior le ft sixth rib appear diminished over the interval. 3. Diminished radiotracer into the left pubic ramus region and right iliac wing. 4. Diminished uptake at the right knee may be related to prior surgery. Diminished density however is similar to additional metastatic lesions, which would be within the differential.
== END | disposition home or self-care (01) ==
LOC: RADCTMAIN 08:42
PROVIDERS: ATTEND Internal Medicine Hematology & Oncology
DX: C61 Malignant neoplasm of prostate (principal); J90 Pleural effusion, not elsewhere classified
CPT/HCPCS: 80051; 82565; 84443; 84520; 85027; 71260; 74177; 36415; 78306; A9503; Q9967

== ENCOUNTER → 2021-01-08 | Outpatient (CLI) | payer MEDICARE, BC ==
[2021-01-08 20:05] LABS: Chol/HDL Ratio 2.84
== END | disposition home or self-care (01) ==
LOC: LABWHC1 09:06
PROVIDERS: ATTEND Internal Medicine Cardiovascular Disease
DX: E78.2 Mixed hyperlipidemia (principal)
CPT/HCPCS: 36415; 80061; 84450; 84460

== ENCOUNTER 2021-07-03 18:27 | Emergency (ER) | payer MEDICARE, BC ==
[2021-07-03 18:40] VITALS: TEMP 98.2
[2021-07-03] MEDS ORDERED: methylPREDNISolone SOD SUCCI 125 MG/2 ML VIAL IM ONE (18:56)
--- NOTE | 2021-07-03 19:02 | ED ---
General Adult HPI - General Chief complaint: Extremity Injury, Upper Stated complaint: bee sting, swelling lt arm Time Seen by Provider: 07/03/21 18:46 Source: patient, RN notes reviewed Mode of arrival: ambulatory Limitations: no limitations - History of Present Illness Initial comments: Patient is an 81-year-old male presenting to the emergency Department with concerns over a bee sting to his left arm. Patient states he was stung in the left bicep area, earlier this afternoon, throughout the day he's noticed more and more redness to the area, swelling and came in for evaluation. He denies any complaints of pain and states it is really itchy. He does not believe he ever been stung before. He has no known ALLERGIES to bee stings. He denies any chest pain or shortness of breath, no wheezing or trouble breathing. No coughing. Denies any fever or chills. He has no further complaints at this time. His vital signs are stable upon arrival. - Related Data Home Medications Medication Instructions Recorded Confirmed Levothyroxine Sodium [Synthroid] 150 mcg PO DAILY 04/12/14 08/13/19 Lisinopril [Prinivil] 10 mg PO DAILY 04/12/14 08/13/19 Multivitamin [Men's Multi-Vitamin] 1 tab PO DAILY 04/12/14 08/13/19 Previous Rx's Medication Instructions Recorded predniSONE [Deltasone] 20 mg PO DAILY 5 Days #5 tab 07/03/21 Allergies Allergy/AdvReac Type Severity Reaction Status Date / Time No Known Allergies Allergy Verified 07/03/21 18:40 Review of Systems ROS Statement: Those systems with pertinent positive or pertinent negative responses have been documented in the HPI. ROS Other: All systems not noted in ROS Statement are negative. Past Medical History Past Medical History: GERD/Reflux, Hypertension, Thyroid Disorder Additional Past Medical History / Comment(s): prostate cancer with seeds (8-9 years ago), skin cancer, chronic constipation, Past Hx of GERD (stops eating at 6 pm), dysphagia. History of Any Multi-Drug Resistant Organisms: None Reported Past Surgical History: Cholecystectomy, Hernia Repair, Joint Replacement, Orthopedic Surgery Additional Past Surgical History / Comment(s): inguinal Hernia, partial thyroidectomy, bilateral knee replacement, I&D of right side rib area abscess . Past Anesthesia/Blood Transfusion Reactions: No Reported Reaction Past Psychological History: No Psychological Hx Reported Smoking Status: Former smoker Past Alcohol Use History: Occasional Past Drug Use History: None Reported - Past Family History Father Family Medical History: Prostate Disorder Mother Family Medical History: Cancer, Hypertension Additional Family Medical History / Comment(s): colon cancer General Exam - General Exam Comments Initial Comments: GENERAL: Patient is well-developed and well-nourished. Patient is nontoxic and in no acute distress. HEAD: Atraumatic, normocephalic. EYES: Pupils equal round and reactive to light, extraocular movements intact, sclera anicteric, conjunctiva are normal. Eyelids were unremarkable. ENT: Oropharynx clear without exudates. Moist mucous membranes. NECK: Normal range of motion, supple without lymphadenopathy or JVD. LUNGS: Unlabored respirations. Breath sounds clear to auscultation bilaterally and equal. No wheezes rales or rhonchi. HEART: Regular rate and rhythm without murmurs, rubs or gallops. ABDOMEN: Soft, nontender, normoactive bowel sounds. No guarding, no rebound. No masses appreciated. : Deferred MUSCULOSKELETAL: Normal extremities with adequate strength and normal range of motion, no pitting or edema. No clubbing or cyanosis. NEUROLOGICAL: Patient is alert and oriented x 3. Normal speech, normal gait. PSYCH: Normal mood, normal affect. SKIN: Warm, Dry, normal turgor. She has a raised area of erythema around the medial aspect of his distal left bicep area, there is some mild swelling to the area, this is consistent with an ALLERGIC response to a bee sting. He has no other rashes. Limitations: no limitations Course Vital Signs 07/03/21 18:37 Temperature 98.2 F Pulse Rate 65 Respiratory 18 Rate Blood Pressure 139/77 O2 Sat by Pulse 98 Oximetry Medical Decision Making - Medical Decision Making Patient is an 81-year-old male here with concerns of a bee sting to his left bicep that happened this morning. Patient does have a large area of erythema on the distal left bicep, there is some mild swelling settling around his left elbow. He has full range of motion, no fevers. This area is pruritic. I discussed with patient this is a response to the bee sting. I recommended ice to the area, I'll give him a shot of steroids today to help with inflammation. I will continue him on a low-dose steroid over the next few days, recommended Benadryl at night for the itching. He is agreeable splenic care. He can follow up with his primary care. Disposition Clinical Impression: Bee sting reaction, Left arm swelling Disposition: HOME SELF-CARE Condition: Stable Instructions (If sedation given, give patient instructions): Insect Bite or Sting (ED) Additional Instructions: Please return to the Emergency Department if symptoms worsen or any other concerns. Recommend ice to the area, Benadryl at night for itchiness. Recommend steroids over the next few days to help with inflammation. Follow-up with your primary care as needed. Prescriptions: predniSONE [Deltasone] 20 mg PO DAILY 5 Days #5 tab Is patient prescribed a controlled substance at d/c from ED?: No Referrals: Narinder Mendez MD [Primary Care Provider] - 1-2 days Time of Disposition: 19:02
[2021-07-03 19:21] VITALS: BP 135/82; PULSE 52; RESP 16
== END 2021-07-03 19:20 | disposition home or self-care (01) ==
LOC: EC 18:27
DX: T63.441A Toxic effect of venom of bees, accidental (unintentional), initial encounter (principal); M79.89 Other specified soft tissue disorders; I10 Essential (primary) hypertension; K21.9 Gastro-esophageal reflux disease without esophagitis; Z79.52 Long term (current) use of systemic steroids; Z79.890 Hormone replacement therapy; Z79.899 Other long term (current) drug therapy; Z87.891 Personal history of nicotine dependence; Z96.653 Presence of artificial knee joint, bilateral; Z90.49 Acquired absence of other specified parts of digestive tract; Z85.46 Personal history of malignant neoplasm of prostate; Z85.828 Personal history of other malignant neoplasm of skin; Z82.49 Family history of ischemic heart disease and other diseases of the circulatory system
CPT/HCPCS: 99282; 96372; J2930

== ENCOUNTER → 2022-01-22 | Outpatient (CLI) | payer MEDICARE, BC ==
--- NOTE | 2022-01-22 12:08 | CT ---
EXAMINATION TYPE: CT ChestAbdPelvis wo con DATE OF EXAM: 01/22/2022 COMPARISON: CT 12/16/2020 HISTORY: R41.[address] DLP: 967.4 mGycm. Automated Exposure Control for Dose Reduction was Utilized. TECHNIQUE: CT scan of the thorax, abdomen and pelvis is performed without IV contrast. Patient received oral con trast FINDINGS: LUNGS: The lungs are stable, there is no concerning parenchymal mass or nodule identified, groundglas s nodule seen on prior exam in the right upper lobe is stable. There is no pleural effusion or pneu mothorax seen. The tracheobronchial tree is patent. MEDIASTINUM: There are no greater than 1 cm hilar or mediastinal lymph nodes. No pericardial effusi on is seen. There are coronary artery calcifications present. OTHER: Ascending aorta is aneurysmal at 4.7 cm on this noncontrast exam, there is atheromatous change . Proximal descending aorta 3.3 cm LIVER/GB: Patient is post cholecystectomy, no evident liver mass, there is suspected pneumobilia pres ent however. PANCREAS: No significant abnormality is seen. SPLEEN: No significant abnormality is seen. ADRENALS: No significant abnormality is seen. KIDNEYS: Large cyst is present at the upper pole of the left kidney measuring 12.3 cm and fluid atten uation, smaller cyst at the upper pole also noted in exophytic location more medially measures 7 cm i n AP dimension, there is no hydronephrosis or renal stone bilaterally, right kidney shows exophytic c ysts, largest 2 cm. BOWEL: No significant abnormality is seen. GENITAL ORGANS: Prostate seeds are in place. LYMPH NODES: No greater than 1cm abdominal or pelvic lymph nodes are appreciated. OSSEOUS STRUCTURES: Multiple sclerotic foci present within the spine, sternum, ribs, pelvis consisten t with metastatic disease. OTHER: Thickening of the urinary bladder wall could be due to chronic outlet obstruction, difficult t o exclude cystitis. Soft tissue seen posterior to the liver shows a similar appearance. 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 Postop change. Again noted there is pneumobilia s uspected within the liver, improved. Aortic aneurysm. Patient's pleural effusion has resolved
--- NOTE | 2022-01-22 12:13 | CT ---
EXAMINATION TYPE: CT brain wo con DATE OF EXAM: 01/22/2022 COMPARISON: CT brain 04/12/2014 HISTORY: memory loss CT DLP: 943.8 mGycm Automated exposure control for dose reduction was used. Helical imaging through the brain. FINDINGS: Periventricular white matter shows patchy low attenuation. There is no hemorrhage or hydrocephalus. C erebral vascular calcifications are present. There is inflammatory change within the sphenoid sinus. Cortical atrophy is noted. IMPRESSION: STABLE EXAM, NO ACUTE ABNORMALITY. AGE-RELATED CHANGES OF ATROPHY AND CHRONIC SMALL VESSEL ISCHEMIA. MILD SINUS DISEASE.
--- NOTE | 2022-01-22 15:40 | NM ---
EXAMINATION TYPE: NM bone scan whole body DATE OF EXAM: 01/22/2022 COMPARISON: 12/16/2020 HISTORY: Prostate cancer Delayed whole-body scanning was performed following the injection of 21 mCi Tc 99m MDP. Images were acquired following appropriate time interval. FINDINGS: There are several focal areas of increased radiotracer accumulation within the posterior ribs includi ng the posterior medial ninth rib, posterior eighth ribs bilaterally and possibly the posterior sixth rib on the left. Increased radiotracer accumulation within the posterior pedicles of L1-L2 and on th e right and T11, T10 and T8. Some central radiotracer is present T5. Some anterior left rib uptake is in the upper ribs suspicious for metastasis. Posterior left lateral pubic ramus uptake is present. Suspicious for metastasis There is mild increased uptake at the bilateral shoulders adjacent to the right knee prostheses and w ithin the right foot more suggestive for degenerative change. COMPARISON: This study is compared with 12/16/2020 uptake distribution appears stable with both metast atic lesions and degenerative changes. IMPRESSION: 1. Multiple rib, some thoracic and lumbar spine, and left inferior pelvis uptake suspicious for multi ple diffuse metastatic disease. Findings appear stable from 2020 comparison.
== END | disposition home or self-care (01) ==
LOC: RADCTMAIN 08:58
PROVIDERS: ATTEND Family Medicine
DX: C79.51 Secondary malignant neoplasm of bone (principal); I71.2 Thoracic aortic aneurysm, without rupture; I67.82 Cerebral ischemia; G31.9 Degenerative disease of nervous system, unspecified; J32.9 Chronic sinusitis, unspecified; C61 Malignant neoplasm of prostate
CPT/HCPCS: 70450; 71250; 74176; 78306; A9503

== ENCOUNTER → 2022-07-12 | Outpatient (CLI) | payer MEDICARE, BC ==
--- NOTE | 2022-07-12 11:10 | BD ---
EXAMINATION TYPE: Axial Bone Density DATE OF EXAM: 07/12/2022 COMPARISON: FIRST DEXA AT [facility] CLINICAL HISTORY: 82 years year old Male. ICD-10 CODE: C61 MALIGNANT NEOPLASM OF PROSTATE Height: 69IN Weight: 184 FRAX RISK QUESTIONS: Secondary Osteoporosis: RISK FACTORS HISTORY OF: Active: YES Lost more than 2 inches in height since high school: YES MEDICATIONS: Thyroid Medications: Which medication: YES SYNTHROID How Lon YEARS Additional Medications: BP MED, CALCIUM, MED FOR PROSTATE CANCER, CHEMOTHERAPY Additional History: RADIATION FOR PROSTATE CANCER, METS TO BONES EXAM MEASUREMENTS: Bone mineral densitometry was performed using the [employer] System. Bone mineral density as measured about the Lumbar spine is: ----- L1-L4(G/cm2): 1.892 T Score Values are as follows: ----- L1: 5.2 ----- L2: 8.5 ----- L3: 5.2 ----- L4: 4.7 ----- L1-L4: 5.9 FIRST DEXA AT [facility] Bone mineral density about the R hip (g/cm2): 0.976 Bone mineral density about the L hip (g/cm2): 1.026 T Score values are as follows: -----R Neck: -0.7 -----L Neck: -0.8 -----R Total: -0.2 -----L Total: 0.1 FRAX%s: The graph provided illustrates a 6.7% chance for a major osteoporotic fx and a 2.3% chance fo r the hips probability for fx in 10 years time. IMPRESSION: Normal (Values between +1 and -1 indicate normal bone mass). Consider repeating this study in 5 year s or sooner if there is some new clinical indication. NOTE: T-SCORE=SD OF THE YOUNG ADULT MEAN.
== END | disposition home or self-care (01) ==
LOC: RADBDWWP 10:23
PROVIDERS: ATTEND Internal Medicine Hematology & Oncology
DX: C61 Malignant neoplasm of prostate (principal)
CPT/HCPCS: 77080

== ENCOUNTER 2022-12-29 02:19 | Inpatient (IN) | payer MEDICARE, BC ==
[2022-12-29] MEDS ORDERED: SODIUM CHLORIDE 0.9% 500 ML 500 ML IV STA (02:37)
--- NOTE | 2022-12-29 03:00 | ED ---
General Adult HPI - General Chief complaint: Arrhythmia/Palpitations Stated complaint: Racing Heart Time Seen by Provider: 12/29/22 02:22 Source: patient, RN notes reviewed, old records reviewed Mode of arrival: ambulatory Limitations: no limitations - History of Present Illness Initial comments: 82-year-old male presents with palpitations which began just prior to arrival. Patient states he's had several episodes of palpitations which were intermittent and short-lived. Patient states that the symptoms woke him from sleep. No associated chest pain or dyspnea. No fever. No vomiting. No diarrhea. No prior history of arrhythmia. - Related Data Home Medications Medication Instructions Recorded Confirmed Levothyroxine Sodium [Synthroid] 150 mcg PO DAILY 04/12/14 08/13/19 Lisinopril [Prinivil] 10 mg PO DAILY 04/12/14 08/13/19 Multivitamin [Men's Multi-Vitamin] 1 tab PO DAILY 04/12/14 08/13/19 Previous Rx's Medication Instructions Recorded predniSONE [Deltasone] 20 mg PO DAILY 5 Days #5 tab 07/03/21 Allergies Allergy/AdvReac Type Severity Reaction Status Date / Time No Known Allergies Allergy Verified 07/03/21 18:40 Review of Systems ROS Statement: Those systems with pertinent positive or pertinent negative responses have been documented in the HPI. ROS Other: All systems not noted in ROS Statement are negative. Past Medical History Past Medical History: GERD/Reflux, Hypertension, Thyroid Disorder Additional Past Medical History / Comment(s): prostate cancer with seeds (8-9 years ago), skin cancer, chronic constipation, Past Hx of GERD (stops eating at 6 pm), dysphagia. History of Any Multi-Drug Resistant Organisms: None Reported Past Surgical History: Cholecystectomy, Hernia Repair, Joint Replacement, Orthopedic Surgery Additional Past Surgical History / Comment(s): inguinal Hernia, partial thyroidectomy, bilateral knee replacement, I&D of right side rib area abscess . Past Anesthesia/Blood Transfusion Reactions: No Reported Reaction Past Psychological History: No Psychological Hx Reported Smoking Status: Former smoker Past Alcohol Use History: Occasional Past Drug Use History: None Reported - Past Family History Father Family Medical History: Prostate Disorder Mother Family Medical History: Cancer, Hypertension Additional Family Medical History / Comment(s): colon cancer General Exam Limitations: no limitations General appearance: alert, in no apparent distress Head exam: Present: atraumatic, normocephalic Eye exam: Present: normal appearance, PERRL ENT exam: Present: normal exam Neck exam: Present: normal inspection. Absent: tenderness, meningismus Respiratory exam: Present: normal lung sounds bilaterally, respiratory distress Cardiovascular Exam: Present: normal rhythm, tachycardia GI/Abdominal exam: Present: soft. Absent: distended, tenderness, guarding, rebound Extremities exam: Present: normal inspection, normal capillary refill. Absent: pedal edema Neurological exam: Present: alert, oriented X3, CN II-XII intact. Absent: motor sensory deficit Psychiatric exam: Present: normal affect, normal mood Skin exam: Present: warm, dry, intact. Absent: cyanosis, diaphoretic Course Vital Signs 12/29/22 12/29/22 02:25 04:08 Temperature 98.4 F Pulse Rate 118 H 78 Respiratory 18 16 Rate Blood Pressure 136/96 125/100 O2 Sat by Pulse 100 98 Oximetry - Reevaluation(s) Reevaluation #1: 12/29/22 02:57 Heart rate on the monitor is lacking variability with a persistent rate 117 or 118 EKG Findings - EKG Comments: EKG Findings:: Initial EKG at 0226, no complex rhythm regular rate of 118, TX interval 155, QRS duration 120, QTC 393, no ST segment elevation. Repeat EKG at 0252 suspect atrial flutter with 2-1 conduction rate of 116, TX interval 196, QRS duration 131, QTC [address] segment elevation. Repeat EKG showing atrial flutter rate of 75 with variable AV block, QRS duration 127, QTC 444 Medical Decision Making - Medical Decision Making Was pt. sent in by a medical professional or institution (, PA, LOBSTER CATCHER, urgent care, hospital, or [facility]...) When possible be specific @ -No Did you speak to anyone other than the patient for history (EMS, parent, family, police, friend...)? What history was obtained from this source @ -No Did you review nursing and triage notes (agree or disagree)? Why? @ -I reviewed and agree with nursing and triage notes Were old charts reviewed (outside hosp., previous admission, EMS record, old EKG, old radiological studies, urgent care reports/EKG's, [facility] records)? Report findings @ -No old charts were reviewed Differential Diagnosis (chest pain, altered mental status, abdominal pain women, abdominal pain men, vaginal bleeding, weakness, fever, dyspnea, syncope, headache, dizziness, GI bleed, back pain, seizure, CVA, palpatations, mental health, musculoskeletal)? @ -Differential Palpitations Ventricular arrhythmias, atrial arrhythmias, myocardial infarction, anemia, thyrotoxicosis, electrolyte imbalance, hypokalemia, pulmonary embolism, pulmonary disease, drugs, alcohol, anxiety, stress.... This is not meant to be an all-inclusive list. EKG interpreted by me (3pts min.). @ -As above X-rays interpreted by me (1pt min.). @ -None done CT interpreted by me (1pt min.). @ -None done U/S interpreted by me (1pt. min.). @ -None done What testing was considered but not performed or refused? (CT, X-rays, U/S, labs)? Why? @ -None What meds were considered but not given or refused? Why? @ -None Did you discuss the management of the patient with other professionals (ben weathers i.e. , PA, LOBSTER CATCHER, lab, RT, psych nurse, director social welfare, set o type operator, teacher, president and chief executive officer, renal case manager)? Give summary @ -case discussed with the admitting physician Dr. Mendez Was smoking cessation discussed for >3mins.? @ -No Was critical care preformed (if so, how long)? @ -No Were there social determinants of health that impacted care today? How? (Homelessness, low income, unemployed, alcoholism, drug addiction, transportation, low edu. Level, literacy, decrease access to med. care, half-way, rehab)? @ -No Was there de-escalation of care discussed even if they declined (Discuss DNR or withdrawal of care, Hospice)? DNR status @ -No What co-morbidities impacted this encounter? (DM, HTN, Smoking, COPD, CAD, Cancer, CVA, ARF, Chemo, Hep., AIDS, mental health diagnosis, sleep apnea, morbid obesity)? @ -None Was patient admitted / discharged? Hospital course, mention meds given and route, prescriptions, significant lab abnormalities, going to OR and other pertinent info. @ -82-year-old male presenting with palpitations. Initial EKG showing narrow complex regular rhythm at 118. Suspect atrial flutter with 2-1 conduction. This is repeated and unchanged. Laboratory testing is performed which is unremarkable CBC, normal CMP, negative troponin. Patient does convert into a improve rate with a variable AV block, atrial flutter at a rate of 75 on repeat EKG blood pressure remained stable. This was after initial Cardizem dosing. Patient is anticoagulated in the emergency department. He'll be admitted to monitored bed with cardiology on consultation for new onset atrial flutter with rapid ventricular response. Undiagnosed new problem with uncertain prognosis? @ -No Drug Therapy requiring intensive monitoring for toxicity (Heparin, Nitro, Insulin, Cardizem)? @ -No Were any procedures done? @ -No Diagnosis/symptom? @ -New-onset atrial flutter with RVR Acute, or Chronic, or Acute on Chronic? @ -Acute Uncomplicated (without systemic symptoms) or Complicated (systemic symptoms)? @ -Complicated Side effects of treatment? @ -No Exacerbation, Progression, or Severe Exacerbation? @ -No Poses a threat to life or bodily function? How? (Chest pain, USA, PA, pneumonia, PE, COPD, DKA, ARF, appy, cholecystitis, CVA, Diverticulitis, Homicidal, Suicidal, threat to staff... and all critical care pts) @ -Yes, risk of arrhythmia, cardiomyopathy, cardiac ischemia - Lab Data Result diagrams: 12/29/22 02:40 12/29/22 02:40 Lab Results 12/29/22 12/29/22 12/29/22 Range/Units 02:40 02:40 02:40 WBC 5.3 (3.8-10.6) k/uL RBC 4.96 (4.30-5.90) m/uL Hgb 15.1 (13.0-17.5) gm/dL Hct 45.3 (39.0-53.0) % MCV 91.3 (80.0-100.0) fL MCH 30.5 (25.0-35.0) pg MCHC 33.4 (31.0-37.0) g/dL RDW 14.9 (11.5-15.5) % Plt Count 157 (150-450) k/uL MPV 7.8 Neutrophils % 50 % Lymphocytes % 42 % Monocytes % 4 % Eosinophils % 2 % Basophils % 0 % Neutrophils # 2.7 (1.3-7.7) k/uL Lymphocytes # 2.2 (1.0-4.8) k/uL Monocytes # 0.2 (0-1.0) k/uL Eosinophils # 0.1 (0-0.7) k/uL Basophils # 0.0 (0-0.2) k/uL PT 10.2 (9.0-12.0) sec INR 1.0 (<1.2) APTT 23.8 (22.0-30.0) sec Sodium 142 (137-145) mmol/L Potassium 4.1 (3.5-5.1) mmol/L Chloride 105 (98-107) mmol/L Carbon Dioxide 30 (22-30) mmol/L Anion Gap 7 mmol/L BUN 27 H (9-20) mg/dL Creatinine 1.31 H (0.66-1.25) mg/dL Est GFR (CKD-EPI)AfAm 58 (>60 ml/min/1.73 sqM) Est GFR (CKD-EPI)NonAf 51 (>60 ml/min/1.73 sqM) Glucose 87 (74-99) mg/dL Calcium 9.1 (8.4-10.2) mg/dL Magnesium 2.2 (1.6-2.3) mg/dL Total Bilirubin 0.7 (0.2-1.3) mg/dL AST 31 (17-59) U/L ALT 20 (4-49) U/L Alkaline Phosphatase 78 (38-126) U/L Troponin I (0.000-0.034) ng/mL Total Protein 7.3 (6.3-8.2) g/dL Albumin 4.3 (3.5-5.0) g/dL TSH 8.150 H (0.465-4.680) mIU/L 12/29/22 Range/Units 02:40 WBC (3.8-10.6) k/uL RBC (4.30-5.90) m/uL Hgb (13.0-17.5) gm/dL Hct (39.0-53.0) % MCV (80.0-100.0) fL MCH (25.0-35.0) pg MCHC (31.0-37.0) g/dL RDW (11.5-15.5) % Plt Count (150-450) k/uL MPV Neutrophils % % Lymphocytes % % Monocytes % % Eosinophils % % Basophils % % Neutrophils # (1.3-7.7) k/uL Lymphocytes # (1.0-4.8) k/uL Monocytes # (0-1.0) k/uL Eosinophils # (0-0.7) k/uL Basophils # (0-0.2) k/uL PT (9.0-12.0) sec INR (<1.2) APTT (22.0-30.0) sec Sodium (137-145) mmol/L Potassium (3.5-5.1) mmol/L Chloride (98-107) mmol/L Carbon Dioxide (22-30) mmol/L Anion Gap mmol/L BUN (9-20) mg/dL Creatinine (0.66-1.25) mg/dL Est GFR (CKD-EPI)AfAm (>60 ml/min/1.73 sqM) Est GFR (CKD-EPI)NonAf (>60 ml/min/1.73 sqM) Glucose (74-99) mg/dL Calcium (8.4-10.2) mg/dL Magnesium (1.6-2.3) mg/dL Total Bilirubin (0.2-1.3) mg/dL AST (17-59) U/L ALT (4-49) U/L Alkaline Phosphatase (38-126) U/L Troponin I <0.012 (0.000-0.034) ng/mL Total Protein (6.3-8.2) g/dL Albumin (3.5-5.0) g/dL TSH (0.465-4.680) mIU/L Critical Care Time Critical Care Time: Yes Total Critical Care Time: 35 Disposition Clinical Impression: Atrial flutter, Atrial flutter with rapid ventricular response, New onset atrial flutter Disposition: ADMITTED IP TO THIS HOSP Condition: Stable Is patient prescribed a controlled substance at d/c from ED?: No Referrals: Narinder Mendez MD [Primary Care Provider] - 1-2 days Time of Disposition: 04:14
[2022-12-29 03:19] LABS: Albumin 4.3 g/dL (3.5-5.0); Calcium 9.1 mg/dL (8.4-10.2); Magnesium 2.2 mg/dL (1.6-2.3); Potassium 4.1 mmol/L (3.5-5.1); Total Bilirubin 0.7 mg/dL (0.2-1.3); Total Protein 7.3 g/dL (6.3-8.2)
[2022-12-29 03:21] LABS: Partial Thromboplastin Time 23.8 sec (22.0-30.0); Prothrombin Time 10.2 sec (9.0-12.0)
[2022-12-29 03:22] LABS: Basophils % (A) 0 %; Eosinophils # (A) 0.1 k/uL (0-0.7); Eosinophils % (A) 2 %; HCT 45.3 % (39.0-53.0); HGB 15.1 gm/dL (13.0-17.5); Lymphocytes # (A) 2.2 k/uL (1.0-4.8); Lymphocytes % (A) 42 %; MCH 30.5 pg (25.0-35.0); MCHC 33.4 g/dL (31.0-37.0); MCV 91.3 fL (80.0-100.0); Mean Platelet Volume 7.8; Monocytes # (A) 0.2 k/uL (0-1.0); Monocytes % (A) 4 %; Neutrophils # (A) 2.7 k/uL (1.3-7.7); Neutrophils % (A) 50 %; Platelet Count 157 k/uL (150-450); RBC 4.96 m/uL (4.30-5.90); RDW 14.9 % (11.5-15.5); WBC 5.3 k/uL (3.8-10.6)
[2022-12-29] MEDS ORDERED: SODIUM CHLORIDE 0.9% 500 ML 500 ML IV ONE (03:38)
[2022-12-29] MEDS ORDERED: METOPROLOL TARTRATE 25 MG TAB PO STA (03:42)
[2022-12-29] MEDS ORDERED: DILTIAZEM DRIP BOLUS FROM BAG 1 MG SOLN IV ONE (03:44)
[2022-12-29] MEDS ORDERED: DILTIAZEM 125 MG in SODIUM CHLORIDE 0.9% 100 ML IV SCH (03:45)
[2022-12-29] MEDS ORDERED: HEPARIN SODIUM 1,000 UN/ML (10ML VL) IV ONE (04:06)
[2022-12-29] MEDS ORDERED: HEPARIN SODIUM 1,000 UN/ML (10ML VL) IV PRN (04:06)
[2022-12-29] MEDS ORDERED: ACETAMINOPHEN TAB 325 MG TAB PO PRN (04:07)
[2022-12-29] MEDS ORDERED: NALOXONE 0.4 MG/ML 1 ML VIAL IV PRN (04:07)
[2022-12-29] MEDS ORDERED: HEPARIN SOD,PORK IN 0.45% NACL 25,000 UNIT in 0.45% NACL 1 250ML.BAG IV SCH (04:15)
[2022-12-29] MEDS: SODIUM CHLORIDE 0.9% 1,000 ML IV SCH (04:18)
[2022-12-29] MEDS: APIXABAN 5 MG TAB PO SCH ×2 (08:04→20:07)
[2022-12-29] MEDS: LEVOTHYROXINE 88 MCG TAB PO SCH (08:04)
[2022-12-29] MEDS: lisinopriL 10 MG TAB PO SCH (08:04)
[2022-12-29] MEDS: METOPROLOL TARTRATE 50 MG TAB PO SCH ×2 (08:04→20:07)
[2022-12-29] MEDS ORDERED: LEVOTHYROXINE 50 MCG TAB PO SCH (09:00)
[2022-12-29] MEDS ORDERED: lisinopriL 20 MG TAB PO SCH (09:00)
--- NOTE | 2022-12-29 09:01 | P.CRDCN ---
History of Present Illness Consult date: 12/29/22 Consult reason: atrial flutter History of present illness: History of present illness: This is an 82 year old male patient of Dr. April Pastor with past medical history of hypertension, hyperlipidemia, mitral and aortic regurgitation, prostate cancer. We have been asked to evaluate the patient for new onset of atrial flutter with RVR. 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 He states he's had this occur about a dozen time over many years and it usually lasts for about 1-2 minutes and goes away on its own. He got up out of bed and he sat in a chair for about an hour and he develo ped some minimal difficulty in breathing and he told his he needed to come into the hospital. Patient was found to be in atrial flutter. Patient received 1 L of IV fluids, Cardizem bolus of 5 mg and started on a heparin drip. EKG atrial flutter 116 bpm, second EKG atrial flutter 118 bpm, third EKG atrial flutter at 75 bpm Chest x-ray: CBC within normal limits. INR 1. Electrolytes normal. BUN 27 creatinine 1.31. Liver function tests are normal. Magnesium 2.2. Troponin negative 1. TSH 8.15. Home cardiac medications: Lisinopril 20 mg daily, levothyroxine 150 g daily Echocardiogram 09/2022 reveals EF 55%, mild mitral regurgitation, mild aortic regurgitation, mild tricuspid regurgitation Lexiscan stress test 08/2020: Normal myocardial perfusion and function Review Of Systems: At the time of my evaluation: Constitutional: No fever, no chills. No weakness, fatigue or lethargy. EENT: No headache. No dizziness. Lungs: No shortness of breath, cough, no sputum production. No wheezing. Cardiovascular: No chest pain, no lower extremity edema. No palpitations. No paroxysmal nocturnal dyspnea. No orthopnea. No lightheadedness or dizziness. No syncopal episodes. Abdominal: No abdominal pain. No nausea, vomiting. No diarrhea. No constipation. No bloody or tarry stools. Genitourinary: No dysuria.. No urinary retention. Musculoskeletal: No myalgias. No muscle weakness, no frequent falls. No back pain. No neck pain. Integumentary: No wounds. No rash. No unusual bruising. Neurologic: No aphasia. No facial droop. No change in mentation. No head injury. No headache. Physical examination: Gen: This is an 82-year-old male resting in bed and appears to be comfortable. No acute distress. VS: reviewed HEENT: Head is atraumatic, normocephalic. Pupils equal, round. Sclerae is anicteric. NECK: Supple. No JVD. No carotid bruit LUNGS: Clear to auscultation. No wheezes or rhonchi. No intercostal retractions. HEART: Regular rate and rhythm. No murmur. ABDOMEN: Soft No tenderness. EXTREMITIES: No pedal edema. No calf tenderness. NEUROLOGICAL: Patient is awake, alert and oriented x3. Assessment: New onset typical atrial flutter with RVR, currently rate controlled Hypertension Hyperlipidemia Plan: Start patient on eliquis 5 mg twice daily and discontinue heparin drip and 6 hours Increase levothyroxine 276 g daily Change lisinopril to 10 mg daily Start Lopressor 50 mg twice daily No need to repeat echocardiogram Plan to obtain fairly controlled ventricular rate and continue anticoagulation followed by outpatient ablation. Further recommendations to follow based upon clinical course Thank you kindly for this consultation. Nurse practitioner note has been reviewed, I agree with documented findings and plan of care. Patient was seen and examined. Past Medical History Past Medical History: GERD/Reflux, Hypertension, Thyroid Disorder Additional Past Medical History / Comment(s): prostate cancer with seeds (8-9 years ago), skin cancer, chronic constipation, Past Hx of GERD (stops eating at 6 pm), dysphagia. History of Any Multi-Drug Resistant Organisms: None Reported Past Surgical History: Cholecystectomy, Hernia Repair, Joint Replacement, Orthopedic Surgery Additional Past Surgical History / Comment(s): inguinal Hernia, partial thyroidectomy, bilateral knee replacement, I&D of right side rib area abscess . Past Anesthesia/Blood Transfusion Reactions: No Reported Reaction Past Psychological History: No Psychological Hx Reported Smoking Status: Never smoker Past Alcohol Use History: Occasional Additional Past Alcohol Use History / Comment(s): Drinks wine daily. Past Drug Use History: None Reported - Past Family History Father Family Medical History: Prostate Disorder Mother Family Medical History: Cancer, Hypertension Additional Family Medical History / Comment(s): colon cancer Medications and Allergies Home Medications Medication Instructions Recorded Confirmed Type Levothyroxine Sodium [Synthroid] 150 mcg PO DAILY 04/12/14 12/29/22 History Multivitamin [Men's Multi-Vitamin] 1 tab PO DAILY 04/12/14 12/29/22 History Abiraterone Acetate [Zytiga] 1,000 mg PO AC-[facility] 12/29/22 12/29/22 History Calcium Carbonate [Calcium] 600 mg PO DAILY 12/29/22 12/29/22 History Omeprazole 20 mg PO DAILY 12/29/22 12/29/22 History lisinopriL [Prinivil] 20 mg PO DAILY 12/29/22 12/29/22 History predniSONE 5 mg PO DAILY 12/29/22 12/29/22 History Allergies Allergy/AdvReac Type Severity Reaction Status Date / Time No Known Allergies Allergy Verified 12/29/22 07:03 Physical Exam Vitals: Vital Signs Temp Pulse Pulse Resp BP BP Pulse Ox 12/29/22 06:14 110 H 16 12/29/22 06:13 98.2 F 110 H 16 118/64 94 L 12/29/22 05:23 97.9 F 68 16 114/78 97 12/29/22 04:08 78 16 125/100 98 12/29/22 02:25 98.4 F 118 H 18 136/96 100 Intake and Output 12/28/22 12/29/22 12/29/22 22:59 06:59 14:59 Intake Total 0.5 Balance 0.5 Intake: Intake, IV Titration 0.5 Amount Diltiazem 125 mg In 0.5 Sodium Chloride 0.9% 100 ml @ 5 MG/HR 5 mls/hr IV .Q24H [facility] Rx#:[id number] Other: Weight 90.718 kg Results 12/29/22 02:40 12/29/22 02:40 Cardiac Enzymes 12/29/22 12/29/22 Range/Units 02:40 02:40 AST 31 (17-59) U/L Troponin I <0.012 (0.000-0.034) ng/mL Coagulation 12/29/22 Range/Units 02:40 PT 10.2 (9.0-12.0) sec APTT 23.8 (22.0-30.0) sec CBC 12/29/22 Range/Units 02:40 WBC 5.3 (3.8-10.6) k/uL RBC 4.96 (4.30-5.90) m/uL Hgb 15.1 (13.0-17.5) gm/dL Hct 45.3 (39.0-53.0) % Plt Count 157 (150-450) k/uL Comprehensive Metabolic Panel 12/29/22 Range/Units 02:40 Sodium 142 (137-145) mmol/L Potassium 4.1 (3.5-5.1) mmol/L Chloride 105 (98-107) mmol/L Carbon Dioxide 30 (22-30) mmol/L BUN 27 H (9-20) mg/dL Creatinine 1.31 H (0.66-1.25) mg/dL Glucose 87 (74-99) mg/dL Calcium 9.1 (8.4-10.2) mg/dL AST 31 (17-59) U/L ALT 20 (4-49) U/L Alkaline Phosphatase 78 (38-126) U/L Total Protein 7.3 (6.3-8.2) g/dL Albumin 4.3 (3.5-5.0) g/dL Current Medications Generic Name Dose Route Start Last Admin Trade Name Freq PRN Reason Stop Dose Admin Acetaminophen 650 mg 12/29/22 04:07 Acetaminophen Tab 325 Mg Tab PO Q6HR PRN Mild Pain or Fever > 100.5 Apixaban 5 mg 12/29/22 09:00 Apixaban 5 Mg Tab PO BID [facility] Protocol Heparin Sodium (Porcine) 0 unit 12/29/22 04:06 Heparin Sodium 1,000 Un/Ml (10ml Vl) IV PER PROTOCOL PRN Low PTT Protocol Heparin Sodium/Sodium Chloride 250 mls @ 9.997 mls/hr 12/29/22 04:15 12/29/22 04:18 25,000 unit/ Sodium Chloride IV 11.02 units/kg/hr .Q24H [facility] 9.997 mls/hr Administration Protocol 11.02 UNITS/KG/HR Sodium Chloride 1,000 mls @ 75 mls/hr 12/29/22 04:15 12/29/22 04:18 Saline 0.9% IV 75 mls/hr .[id number] [facility] Administration Lisinopril 20 mg 12/29/22 09:00 Lisinopril 20 Mg Tab PO DAILY [facility] Lisinopril 10 mg 12/29/22 09:00 Lisinopril 10 Mg Tab PO DAILY [facility] Metoprolol Tartrate 50 mg 12/29/22 09:00 Metoprolol Tartrate 50 Mg Tab PO BID [facility] Naloxone HCl 0.2 mg 12/29/22 04:07 Naloxone 0.4 Mg/Ml 1 Ml Vial IV Q2M PRN Opioid Reversal Non-Formulary Medication 175 mcg 12/29/22 09:00 Levothyroxine Sodium [Synthroid] PO DAILY [facility] Intake and Output 12/28/22 12/29/22 12/29/22 22:59 06:59 14:59 Intake Total 0.5 Balance 0.5 Intake: Intake, IV Titration 0.5 Amount Diltiazem 125 mg In 0.5 Sodium Chloride 0.9% 100 ml @ 5 MG/HR 5 mls/hr IV .Q24H [facility] Rx#:[id number] Other: Weight 90.718 kg 12/29/22 02:40 12/29/22 02:40
--- NOTE | 2022-12-29 12:37 | P.HPIM ---
History of Present Illness H&P Date: 12/29/22 Chief Complaint: Palpitations This is an 82-year-old gentleman with past medical history of hypertension, hyperlipidemia, gastroesophageal reflux disease, hypothyroidism, prostate cancer with radiation seeds, chronic constipation, dysphagia presented to the ER with complaint of palpitations accompanied by shortness of breath. Reports he has had multiple occasions of recurrent palpitations/heart racing lasting only 1-2 minutes and then spontaneously subsided.Early this morning patient was awakened by a recurrent palpitations accompanied by shortness of breath, proceeded to sit up in the chair, with no relief. States his heart racing continued for about an hour and presented to the hospital. Troponin negative 1, EKG reported atrial flutter in the 1 teens on admission, Cardizem drip initiated. Afebrile. Hematology, coagulation panels unremarkable. Electrolytes within normal limits/Magnesium 2.2, BUN and creatinine 27/ 1.31(baseline 1.1). TSH 8.150.Received IV fluids. Review of Systems ROS Statement: Those systems with pertinent positive or pertinent negative responses have been documented in the HPI. ROS Other: All systems not noted in ROS Statement are negative. Past Medical History Past Medical History: GERD/Reflux, Hypertension, Thyroid Disorder Additional Past Medical History / Comment(s): prostate cancer with seeds (8-9 years ago), skin cancer, chronic constipation, Past Hx of GERD (stops eating at 6 pm), dysphagia. History of Any Multi-Drug Resistant Organisms: None Reported Past Surgical History: Cholecystectomy, Hernia Repair, Joint Replacement, Orthopedic Surgery Additional Past Surgical History / Comment(s): inguinal Hernia, partial thyroidectomy, bilateral knee replacement, I&D of right side rib area abscess . Past Anesthesia/Blood Transfusion Reactions: No Reported Reaction Past Psychological History: No Psychological Hx Reported Smoking Status: Never smoker Past Alcohol Use History: Occasional Additional Past Alcohol Use History / Comment(s): Drinks wine daily. Past Drug Use History: None Reported - Past Family History Father Family Medical History: Prostate Disorder Mother Family Medical History: Cancer, Hypertension Additional Family Medical History / Comment(s): colon cancer Medications and Allergies Home Medications Medication Instructions Recorded Confirmed Type Levothyroxine Sodium [Synthroid] 150 mcg PO DAILY 04/12/14 12/29/22 History Multivitamin [Men's Multi-Vitamin] 1 tab PO DAILY 04/12/14 12/29/22 History Abiraterone Acetate [Zytiga] 1,000 mg PO AC-BRKFST 12/29/22 12/29/22 History Calcium Carbonate [Calcium] 600 mg PO DAILY 12/29/22 12/29/22 History Omeprazole 20 mg PO DAILY 12/29/22 12/29/22 History lisinopriL [Prinivil] 20 mg PO DAILY 12/29/22 12/29/22 History predniSONE 5 mg PO DAILY 12/29/22 12/29/22 History Allergies Allergy/AdvReac Type Severity Reaction Status Date / Time No Known Allergies Allergy Verified 12/29/22 07:03 Physical Exam Vitals: Vital Signs Temp Pulse Pulse Resp BP BP Pulse Ox 12/29/22 07:57 97.4 F L 118 H 18 124/75 96 12/29/22 06:14 110 H 16 12/29/22 06:13 98.2 F 110 H 16 118/64 94 L 12/29/22 05:23 97.9 F 68 16 114/78 97 12/29/22 04:08 78 16 125/100 98 12/29/22 02:25 98.4 F 118 H 18 136/96 100 Intake and Output 12/28/22 12/29/22 12/29/22 22:59 06:59 14:59 Intake Total 0.5 180 Balance 0.5 180 Intake: Intake, IV Titration 0.5 Amount Diltiazem 125 mg In 0.5 Sodium Chloride 0.9% 100 ml @ 5 MG/HR 5 mls/hr IV .Q24H [facility] Rx#:[id number] Oral 180 Other: Weight 90.718 kg PHYSICAL EXAM: VITAL SIGNS: [As above] GENERAL: This is an 82-year-old gentleman ,Sitting up in bed, no acute distress, pleasant, cooperative HEENT: Atraumatic, normocephalic, Conjunctivae normal. eyes normal. NECK: Supple, No JVD. No thyroid enlargement. No LNs CARDIOVASCULAR: S1, S2 regular. No murmur RESPIRATION: Breath sounds diminished in the bases. No rhonchi or crackles. No bronchial breathing. ABDOMEN: Soft, nondistended, nontender . No guarding. no masses palpable. No ascites, No hepatosplenomegaly.Bowel sounds heard. LEGS: No edema. no swelling PSYCHIATRY: Alert and oriented X3, mood and affect normal. NERVOUS SYSTEM: Cranial N 2-12 grossly normal. No focal deficits. Strength and sensation grossly intact. Skin: Warm and dry, no rash Results CBC & Chem 7: 12/29/22 02:40 12/29/22 02:40 Labs: Abnormal Lab Results - Last 24 Hours (Table) 12/29/22 Range/Units 02:40 BUN 27 H (9-20) mg/dL Creatinine 1.31 H (0.66-1.25) mg/dL TSH 8.150 H (0.465-4.680) mIU/L Thrombosis Risk Factor Assmnt - Choose All That Apply Any of the Below Risk Factors Present?: Yes Other Risk Factors: Yes Each Risk Factor Represents 3 Points: Age 75 years or older Other congenital or acquired thrombophilia - If yes, enter type in comment: No Thrombosis Risk Factor Assessment Total Risk Factor Score: 3 Thrombosis Risk Factor Assessment Level: Moderate Risk Assessment and Plan Assessment: New onset atrial flutter with RVR Hypothyroidism, subtherapeutic, TSH 8.15 Acute renal failure secondary to dehydration Hypertension Hyperlipidemia Hypothyroidism History of prostate cancer Prior nicotine dependence Plan: Continue on current medication regime ,monitoring and symptomatic t reatment. Levothyroxine dose increased. Gentle IV fluid hydration. Anti-arrhythmics/anticoagulation as per cardiology. Elective ablation outpatient in 1 month. Close monitoring of electrolytes, renal function with labs ordered for a.m. Discharge planning in progress for tentatively tomorrow pending final DC recommendations and clearance per cardiology. The impression and plan of care has been dictated as directed. : I performed a history and examination of this patient, discussed the same with the dictator. I agree with the dictator's note ,documented as a scribe. Any additional findings or plans will be noted.
[2022-12-29] MEDS: MULTIVITAMINS, THERA 1 EACH TAB PO SCH (12:47)
[2022-12-29] MEDS: predniSONE 5 MG TAB PO SCH (12:47)
[2022-12-29] MEDS: CALCIUM CARBONATE 500 MG CHEWABLE PO SCH (12:48)
[2022-12-29 21:31] VITALS: RESP 16
[2022-12-30] MEDS: SODIUM CHLORIDE 0.9% 1,000 ML IV SCH (05:18)
[2022-12-30] MEDS: LEVOTHYROXINE 88 MCG TAB PO SCH (06:43)
[2022-12-30 06:52] LABS: Basophils % (A) 0 %; Eosinophils # (A) 0.1 k/uL (0-0.7); Eosinophils % (A) 2 %; HCT 42.8 % (39.0-53.0); HGB 13.6 gm/dL (13.0-17.5); Lymphocytes # (A) 1.3 k/uL (1.0-4.8); Lymphocytes % (A) 31 %; MCH 29.5 pg (25.0-35.0); MCHC 31.8 g/dL (31.0-37.0); MCV 92.7 fL (80.0-100.0); Mean Platelet Volume 7.1; Monocytes # (A) 0.2 k/uL (0-1.0); Monocytes % (A) 4 %; Neutrophils # (A) 2.5 k/uL (1.3-7.7); Neutrophils % (A) 60 %; Platelet Count 147 k/uL (150-450); RBC 4.62 m/uL (4.30-5.90); RDW 14.7 % (11.5-15.5); WBC 4.2 k/uL (3.8-10.6)
[2022-12-30 07:01] LABS: INR 1.1 (<1.2)
[2022-12-30 07:03] LABS: Calcium 7.9 mg/dL (8.4-10.2); Potassium 4.6 mmol/L (3.5-5.1)
[2022-12-30] MEDS ORDERED: ABIRATERONE ACETATE 500 MG PO SCH (07:30)
[2022-12-30] MEDS: MULTIVITAMINS, THERA 1 EACH TAB PO SCH (08:58)
[2022-12-30] MEDS: METOPROLOL TARTRATE 50 MG TAB PO SCH (08:58)
[2022-12-30] MEDS: lisinopriL 10 MG TAB PO SCH (08:58)
[2022-12-30] MEDS: APIXABAN 5 MG TAB PO SCH (08:58)
[2022-12-30] MEDS: predniSONE 5 MG TAB PO SCH (08:58)
[2022-12-30] MEDS: CALCIUM CARBONATE 500 MG CHEWABLE PO SCH (09:00)
[2022-12-30 09:28] VITALS: BP 122/74; PULSE 97; TEMP 97.8
--- NOTE | 2022-12-30 11:19 | P.PN ---
Subjective Progress Note Date: 12/30/22 History of present illness: This is an 82 year old male patient of Dr. April Pastor with past medical history of hypertension, hyperlipidemia, mitral and aortic regurgitation, prostate cancer. We have been asked to evaluate the patient for new onset of atrial flutter with RVR. 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 He states he's had this occur about a dozen time over many years and it usually lasts for about 1-2 minutes and goes away on its own. He got up out of bed and he sat in a chair for about an hour and he developed some minimal difficulty in breathing and he told his he needed to come into the hospital. Patient was found to be in atrial flutter. Patient received 1 L of IV fluids, Cardizem bolus of 5 mg and started on a heparin drip. EKG atrial flutter 116 bpm, second EKG atrial flutter 118 bpm, third EKG atrial flutter at 75 bpm Chest x-ray: CBC within normal limits. INR 1. Electrolytes normal. BUN 27 creatinine 1.31. Liver function tests are normal. Magnesium 2.2. Troponin negative 1. TSH 8.15. Home cardiac medications: Lisinopril 20 mg daily, levothyroxine 150 g daily Echocardiogram 09/2022 reveals EF 55%, mild mitral regurgitation, mild aortic regurgitation, mild tricuspid regurgitation Lexiscan stress test 08/2020: Normal myocardial perfusion and function 12/30 Patient is seen today in follow-up. History of anemia, heart rate was in the 50s and this morning and 120s but mostly running 50s to 90s, blood pressure 122/74. We anticipate that his heart rate will be difficult to control and dewayne ent has been advised to do some activity but limit any aggressive exercise. He states his breathing is much better but occasionally he has some increased shortness of breath. He states he is walked in the hallways and is done well with this, no chest pain and no significant shortness of breath. Physical examination: Gen: This is an 82-year-old male resting in bed and appears to be comfortable. No acute distress. VS: reviewed HEENT: Head is atraumatic, normocephalic. Pupils equal, round. Sclerae is anicteric. NECK: Supple. No JVD. No carotid bruit LUNGS: Clear to auscultation. No wheezes or rhonchi. No intercostal retractions. HEART: Regular rate and rhythm. No murmur. ABDOMEN: Soft No tenderness. EXTREMITIES: No pedal edema. No calf tenderness. NEUROLOGICAL: Patient is awake, alert and oriented x3. Assessment: New onset typical atrial flutter with RVR, symptomatic Hypertension Hyperlipidemia Plan: Continue patient on eliquis 5 mg twice daily Continue increased levothyroxine 176 g daily Continue lisinopril to 10 mg daily Continue Lopressor 50 mg twice daily Patient is cleared from cardiology for discharge home with follow-up in the office with Dr. Pastor. Patient will be scheduled for an outpatient ablation around early January. New prescriptions have been sent to his pharmacy.. Nurse practitioner note has been reviewed, I agree with documented findings and plan of care. Patient was seen and examined. Objective - Vital Signs Vital signs: Vital Signs Temp 97.9 F 12/30/22 04:00 Pulse 58 L 12/30/22 04:00 Resp 16 12/30/22 04:00 BP 116/68 12/30/22 04:00 Pulse Ox 97 12/30/22 04:00 FiO2 Intake & Output 12/29/22 12/30/22 12/30/22 18:59 06:59 18:59 Intake Total 2460 240 Balance 2460 240 Intake: Intake, IV Titration 680 Amount Heparin Sod,Pork in 0.45% 80 NaCl 25,000 unit In 0.45 % NaCl 1 250ml.bag @ 11. 02 UNITS/KG/HR 9.997 mls/ hr IV .Q24H [facility] Rx#: [id number] Sodium Chloride 0.9% 1, 600 000 ml @ 75 mls/hr IV . [id number] [facility] Rx#:[id number] Oral 1780 240 Other: # Voids 2 - Labs CBC & Chem 7: 12/30/22 06:16 12/30/22 06:16 Labs: Abnormal Lab Results - Last 24 Hours (Table) 12/30/22 12/30/22 Range/Units 06:16 06:16 Plt Count 147 L (150-450) k/uL Chloride 110 H (98-107) mmol/L BUN 21 H (9-20) mg/dL Calcium 7.9 L (8.4-10.2) mg/dL
--- NOTE | 2022-12-30 17:47 | P.DS ---
Providers Date of admission: 12/29/22 04:07 Expected date of discharge: 12/30/22 Attending physician: Narinder Mendez Consults: 12/29/22 04:07 Consult Physician Routine Consulting Provider: Rick Michelle Consult Reason/Comments: New-onset atrial flutter with RVR Do you want consulting provider notified?: Yes Primary care physician: Narinder Mendez Hospital Course: Final Diagnoses: New onset atrial flutter with RVR, symptomatic Hypothyroidism, subtherapeutic, TSH 8.15,Levothyroxine dose increased. Check thyroid panel outpatient in clinic. Acute renal failure secondary to dehydration, improving Hypertension Hyperlipidemia Hypothyroidism History of prostate cancer Prior nicotine dependence Hospital course:This is an 82-year-old gentleman with past medical history of hypertension, hyperlipidemia, gastroesophageal reflux disease, hypothyroidism, prostate cancer with radiation seeds, chronic constipation, dysphagia presented to the ER with complaint of palpitations accompanied by shortness of breath. Reports he has had multiple occasions of recurrent palpitations/heart racing lasting only 1-2 minutes and then spontaneously subsided.Early this morning patient was awakened by a recurrent palpitations accompanied by shortness of breath, proceeded to sit up in the chair, with no relief. States his heart racing continued for about an hour and presented to the hospital. Troponin negative 1, EKG reported atrial flutter in the 1 teens on admission, Cardizem drip initiated. Afebrile. Hematology, coagulation panels unremarkable. Electrolytes within normal limits/Magnesium 2.2, BUN and creatinine 27/ 1.31(baseline 1.1). TSH 8.150.Received IV fluids. Renal function improving, BUN decreased to 21, creatinine 1.07. Levothyroxine dose increased. Maintained on antiarrhythmics, anticoagulation with elective ablation outpatient in 1 month as per cardiology. Significant clinical improvement. Heart rate fluctuating between high 50s and high 90s. Denies chest pain, palpitations. He ambulated in the hallway, tolerating exertion well, reports occasional shortness of breath.maintaining O2 sat in the 90s on room air. Significant clinical improvement. Cleared by cardiology for discharge. Patient will be discharged home today in a stable condition with guarded prognosis. The impression and plan of care has been dictated as directed. : I performed a history and examination of this patient, discussed the same with the dictator. I agree with the dictator's note ,documented as a scribe. Any additional findings or plans will be noted. Patient Condition at Discharge: Stable Plan - Discharge Summary Discharge Rx Participant: No New Discharge Prescriptions: New Levothyroxine Sodium [Synthroid] 176 mcg PO DAILY@0630 #60 tab Apixaban [Eliquis] 5 mg PO BID #60 tab Metoprolol Tartrate [Lopressor] 50 mg PO BID #60 tab lisinopriL [Zestril] 10 mg PO DAILY #30 tab Continue Multivitamin [Men's Multi-Vitamin] 1 tab PO DAILY Abiraterone Acetate [Zytiga] 1,000 mg PO [facility] Omeprazole 20 mg PO DAILY predniSONE 5 mg PO DAILY Calcium Carbonate [Calcium] 600 mg PO DAILY Discontinued Levothyroxine Sodium [Synthroid] 150 mcg PO DAILY lisinopriL [Prinivil] 20 mg PO DAILY Discharge Medication List Multivitamin [Men's Multi-Vitamin] 1 tab PO DAILY 04/12/14 [History] Abiraterone Acetate [Zytiga] 1,000 mg PO [facility] 12/29/22 [History] Calcium Carbonate [Calcium] 600 mg PO DAILY 12/29/22 [History] Omeprazole 20 mg PO DAILY 12/29/22 [History] predniSONE 5 mg PO DAILY 12/29/22 [History] Apixaban [Eliquis] 5 mg PO BID #60 tab 12/30/22 [Rx] Levothyroxine Sodium [Synthroid] 176 mcg PO DAILY@0630 #60 tab 12/30/22 [Rx] Metoprolol Tartrate [Lopressor] 50 mg PO BID #60 tab 12/30/22 [Rx] lisinopriL [Zestril] 10 mg PO DAILY #30 tab 12/30/22 [Rx] Follow up Appointment(s)/Referral(s): Narinder Mendez MD [Primary Care Provider] - 01/03/23 3:45 pm Gildardo Pastor MD [STAFF PHYSICIAN] - 01/11/23 3:45 pm Discharge Disposition: HOME WITH HOME HEALTH SERVICES
== END 2022-12-30 10:29 | disposition home health service (06) | DRG 309 ==
LOC: EC 02:19 → 3SCARD 04:07
PROVIDERS: ADMIT Family Medicine; ATTEND Family Medicine
DX: I48.3 Typical atrial flutter (principal); N17.9 Acute kidney failure, unspecified; J44.9 Chronic obstructive pulmonary disease, unspecified; I44.30 Unspecified atrioventricular block; K21.9 Gastro-esophageal reflux disease without esophagitis; E03.9 Hypothyroidism, unspecified; Z79.899 Other long term (current) drug therapy; E78.5 Hyperlipidemia, unspecified; I08.3 Combined rheumatic disorders of mitral, aortic and tricuspid valves; K59.09 Other constipation; E86.0 Dehydration; Z79.890 Hormone replacement therapy; Z85.46 Personal history of malignant neoplasm of prostate; Z85.828 Personal history of other malignant neoplasm of skin; Z87.891 Personal history of nicotine dependence; Z96.653 Presence of artificial knee joint, bilateral; Z87.19 Personal history of other diseases of the digestive system; Z90.49 Acquired absence of other specified parts of digestive tract
CPT/HCPCS: 36415; 80048; 80053; 83735; 84443; 84484; 85025; 85610; 85730; 93005; 96361; 96365; 96375; 99291

== ENCOUNTER → 2023-01-24 | Outpatient (CLI) | payer MEDICARE, BC ==
[2023-01-24 21:20] LABS: HGB 13.3 g/dL (13.0-17.0); MCH 29.6 pg (27.0-32.0); MCHC 30.9 g/dL (32.0-37.0); MCV 95.6 fL (80.0-97.0); Mean Platelet Volume 9.9 fL (9.5-12.2); NRBC Per 100 WBC 0 /100 WBCS (0.0-0.0); Platelet Count 173 X 10*3/uL (140-440); RDW 15.4 % (11.5-14.5); WBC 4.05 X 10*3/uL (4.50-10.00)
[2023-01-24 22:33] LABS: African American GFR (CKD) 58.5 (60.0-200.0); Anion Gap 6.8 mmol/L (10.00-18.00); Blood Urea Nitrogen 20.1 mg/dL (9.0-27.0); Carbon Dioxide 31.2 mmol/L (20.0-27.5); Non-African American GFR(CKD) 50.5 (60.0-200.0); Potassium 4.9 mmol/L (3.5-5.5)
== END | disposition home or self-care (01) ==
LOC: LABPAT 12:50
PROVIDERS: ATTEND Internal Medicine Clinical Cardiac Electrophysiology
DX: Z01.812 Encounter for preprocedural laboratory examination (principal); I48.3 Typical atrial flutter
CPT/HCPCS: 36415; 80051; 82565; 84520; 85027

== ENCOUNTER 2023-01-31 10:59 | Day surgery (SDC) | payer MEDICARE, BC ==
[~2023-01-31 10:59] MED LIST changes: -LIDOCAINE 1% 20 ML VIAL (10MG/ML) FOR IV START INTRADERMA PRN; +SODIUM CHLORIDE 0.9% 1,000 ML IV SCH
[2023-01-31] MEDS ORDERED: HEPARIN SODIUM (1,000 UNIT/ML) 1,000 UNIT in SODIUM CHLORIDE 0.9% 1,000 ML IRRIGATION ONE (12:00)
[2023-01-31] MEDS ORDERED: SUCCINYLCHOLINE CHLORIDE 200 MG/10 ML VIAL IV ONE (12:47)
[2023-01-31] MEDS ORDERED: ROCURONIUM 10 MG/ML (5 ML VIAL) IV ONE (12:47)
[2023-01-31] MEDS ORDERED: PROPOFOL 10 MG/ML 20 ML VIAL IV ONE (12:47)
[2023-01-31] MEDS ORDERED: LIDOCAINE 2% INJ 20 MG/ML (2 ML VIAL) ONE (12:47)
[2023-01-31] MEDS ORDERED: MIDAZOLAM 2 MG/2 ML VIAL ONE (12:47)
[2023-01-31] MEDS ORDERED: ePHEDrine 50 MG/ML 1 ML VIAL ONE (12:47)
[2023-01-31] MEDS ORDERED: GLYCOPYRROLATE 0.2 MG/ML 2 ML VIAL ONE (12:47)
[2023-01-31] MEDS ORDERED: fentaNYL (PF) 50 MCG/ML 2 ML AMP ONE (12:47)
[2023-01-31] MEDS ORDERED: NEOSTIGMINE 1 MG/ML 10 ML VIAL ONE (12:47)
[2023-01-31] MEDS ORDERED: ISOPROTERENOL 250 MCG/1.25 ML SYR IV ONE (12:47)
[2023-01-31] MEDS ORDERED: LIDOCAINE 1% INJ 10MG/ML (20 ML MDV) ONE (13:00)
[2023-01-31] MEDS ORDERED: LIDOCAINE 1% INJ 10MG/ML (20 ML MDV) SQ ONE (13:11)
[2023-01-31 14:18] LABS: T4, Free (Free Thyroxine) 1.42 ng/dL (0.78-2.19)
[2023-01-31] MEDS ORDERED: SODIUM CHLORIDE 0.9% 500 ML 500 ML IV ONE (15:38)
[2023-01-31] MEDS ORDERED: LACTATED RINGERS 1,000 ML IV ONE (15:38)
--- NOTE | 2023-01-31 16:13 | P.HPCAR ---
History of Present Illness This is Dr. Carmen dictating an H/P on this patient The patient was interviewed and examined IMPRESSION / ASSESSMENT: Recurrent atrial flutter with RVR, typical Hypertension Hypothyroidism on levothyroxine PLAN: Diagnoses EP study and radiofrequency ablation of his tachycardia Continue ELIQUIS HPI Patient was admitted to the hospital with atrial tachycardia / typical atrial flutter with RVR. He is a suitable to control He was anticoagulated and the dose of beta blockers were increased He saw Dr. Newell as an outpatient. He was in atrial flutter with a more controlled ventricular response. His lisinopril was held that day Today he is in sinus rhythm, sinus bradycardia He denies any fever chills cough expectoration No loss of consciousness ROS: No fever chills or rigors, no cough, phlegm or expectoration, no nausea, vomiting or diarrhea, no hematuria, dysuria, no musculoskeletal complaints, no strokes or seizures, no skin lesions. EXAMINATION: Blood pressure 180/98 mmHg pulse rate in the 50s afebrile Breath sounds are clear no rhonchi no crackles Sounds S1-S2 are normal no murmurs Abdomen soft Extremity is warm no edema REVIEW OF LABS, ECG & MEDICAL DATA current medications include levothyroxine 176 g by mouth daily ELIQUIS 5 mg twice daily prednisone lisinopril 10 mg daily and metoprolol TSH 8.9 and free T4 1 0.4 to Physical Exam Vitals: Vital Signs Temp Pulse Resp BP BP Pulse Ox 01/31/23 11:35 180/98 01/31/23 11:30 96.0 F L 50 L 16 227/100 210/96 96 Intake and Output 01/31/23 01/31/23 01/31/23 06:59 14:59 22:59 Intake Total 1060 100 Balance 1060 100 Intake: IV 1060 100 Other: Weight 88.3 kg Past Medical History Past Medical History: Cancer, GERD/Reflux, Hypertension, Thyroid Disorder Additional Past Medical History / Comment(s): prostate cancer with seeds (8-9 years ago), skin cancer, intermittent constipation, Past Hx of GERD (stops eating at 6 pm), . see Dr Carmen's H&P History of Any Multi-Drug Resistant Organisms: None Reported Past Surgical History: Cholecystectomy, Hernia Repair, Joint Replacement, Orthopedic Surgery Additional Past Surgical History / Comment(s): inguinal Hernia, partial thyroidectomy, bilateral knee replacement, I&D of right side rib area abscess .hiatal hernia. colonoscopy Past Anesthesia/Blood Transfusion Reactions: No Reported Reaction Smoking Status: Former smoker - Past Family History Father Family Medical History: Prostate Disorder Mother Family Medical History: Cancer, Hypertension Additional Family Medical History / Comment(s): colon cancer Physical Examination Vital Signs Temp Pulse Resp BP BP Pulse Ox 01/31/23 11:35 180/98 01/31/23 11:30 96.0 F L 50 L 16 227/100 210/96 96 Intake and Output 01/31/23 01/31/23 01/31/23 06:59 14:59 22:59 Intake Total 1060 100 Balance 1060 100 Intake: IV 1060 100 Other: Weight 88.3 kg Results Current Medications Generic Name Dose Route Start Last Admin Trade Name Freq PRN Reason Stop Dose Admin Lactated Ringer's 1,000 mls @ 20 mls/hr 01/31/23 06:05 Lactated Ringers IV 03/02/23 06:06 .Q24H AMARJIT Sodium Chloride 1,000 mls @ 50 mls/hr 01/31/23 06:05 01/31/23 11:35 Saline 0.9% IV 03/02/23 06:06 500 mls .Q20H AMARJIT Administration Intake and Output 01/31/23 01/31/23 01/31/23 06:59 14:59 22:59 Intake Total 1060 100 Balance 1060 100 Intake: IV 1060 100 Other: Weight 88.3 kg Patient Weight 02/01/23 06:59 Weight 88.3 kg
[2023-01-31] MEDS ORDERED: ACETAMINOPHEN IV (For NPO) 1,000 MG in EMPTY BAG 1 BAG IVPB ONE (16:22)
[2023-01-31] MEDS ORDERED: ACETAMINOPHEN TAB 325 MG TAB PO PRN (16:22)
[2023-01-31] MEDS: APIXABAN 5 MG TAB PO SCH (20:07)
[2023-01-31] MEDS: METOPROLOL TARTRATE 25 MG TAB PO SCH (20:07)
[2023-02-01] MEDS ORDERED: LEVOTHYROXINE 88 MCG TAB PO SCH (06:30)
[2023-02-01] MEDS ORDERED: PANTOPRAZOLE 40 MG TABLET PO SCH (07:30)
[2023-02-01] MEDS ORDERED: ABIRATERONE ACETATE 500 MG PO SCH (07:30)
[2023-02-01 07:57] VITALS: BP 132/82; PULSE 53; RESP 18; TEMP 97.9
[2023-02-01] MEDS: METOPROLOL TARTRATE 25 MG TAB PO SCH (08:41)
[2023-02-01] MEDS: APIXABAN 5 MG TAB PO SCH (08:41)
[2023-02-01] MEDS ORDERED: predniSONE 5 MG TAB PO SCH (09:00)
[2023-02-01] MEDS ORDERED: lisinopriL 20 MG TAB PO SCH (09:00)
[2023-02-01 12:36] LABS: Appearance,Urine Cloudy (Clear); Bilirubin,Urine Negative (Negative); Blood,Urine Large (Negative); Color,Urine Light Red; Glucose,Urine (UA) Negative (Negative); Ketones,Urine Trace (Negative); Leukocyte Esterase,Urine Trace (Negative); Nitrite,Urine Negative (Negative); Protein,Urine 1+ (Negative); RBC,Urine >182 /hpf (0-5); Specific Gravity,Urine 1.015 (1.001-1.035); Urobilinogen,Urine <2.0 mg/dL (<2.0); WBC,Urine 2 /hpf (0-5)
--- NOTE | 2023-02-02 08:21 | P.EPPROC ---
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 Written informed consent was obtained prior to the procedure. Venous sheaths placed in the right left femoral veins and diabetes diagnostic mapping and ablation cath were placed Sinus cycle length 1194 ms, MI interval 150 ms, QRS 129 ms and QT 513 ms AH 95 and HV 33 ms Sinus node recovery times is 605 100 ms were 1216 and 1990 ms AV node Wenckebach block 350 ms Slow pathway was noted antegradely at pacing cycle length of 390 ms No inducible AV ludy reentry Intracardiac echo was performed.. The cavo tricuspid isthmus was identified and tagged mapped Successful placement frequency ablation for typical atrial flutter was performed in the cavo tricuspid isthmus Complete line of block was made Bidirectional block was proven with differential pacing Following that EP study was continued on Isuprel Double extrastimuli from the coronary sinus@500/260/260 ms, in atrial tachycardia with early signals in the high right atrial catheter were noted 3-D electro-anatomic mapping was performed. Activation mapping with revealed earliest activation just above the superior margin of the tricuspid annulus anteriorly The tachycardia was difficult to induce It will also terminate very easily with the slightest catheter Manipulation in the Area/contact, even with the Pentaray catheter Pentaray Catheter Was Used along with the Mapping and Ablation Catheter The Area Was Localized. The voltage map was also performed in this area The His Bundle Area Was Mapped and tagged Bipolar Signals Were Mapped in Sinus Rhythm in the Area of the atrial focus, voltage RF ablation was performed in the low voltage areas within this broad area of activation. With RF ablation atrial tachycardia was induced and then terminated during RF Multiple RF lesions with bolus lesions applied around the area taking care of that fever away from the His bundle and AV node area At the end of the procedure the tachycardia was not inducible and the MI interval remained stable Intracardiac echo at the end did not reveal any pericardial effusion Intracardiac echo prior to starting revealed a mildly thickened pericardium and a dilated aortic root Plan increase lisinopril to 20 mg by mouth daily Reduce the dose of metoprolol to 25 g twice daily Continue ELIQUIS
== END 2023-02-01 12:56 | disposition home or self-care (01) ==
LOC: CATHEP 10:59 → 6NMEDSUR 16:26 → CATHEP 02-01 12:56
PROVIDERS: ATTEND Internal Medicine Clinical Cardiac Electrophysiology
DX: I48.3 Typical atrial flutter (principal); I10 Essential (primary) hypertension; E03.9 Hypothyroidism, unspecified; Z79.01 Long term (current) use of anticoagulants; Z79.890 Hormone replacement therapy; Z79.899 Other long term (current) drug therapy; K21.9 Gastro-esophageal reflux disease without esophagitis; Z85.46 Personal history of malignant neoplasm of prostate; Z90.49 Acquired absence of other specified parts of digestive tract; Z96.653 Presence of artificial knee joint, bilateral; Z87.891 Personal history of nicotine dependence; Z82.49 Family history of ischemic heart disease and other diseases of the circulatory system; Z80.0 Family history of malignant neoplasm of digestive organs
CPT/HCPCS: 81001; 84439; 84443; 93623; 93653; 93662

== ENCOUNTER → 2023-11-03 | Outpatient (CLI) | payer MEDICARE, BC ==
--- NOTE | 2023-11-03 14:28 | US ---
LOWER EXTREMITY VENOUS INSUFFICIENCY CLINICAL INDICATION: Male, 83 years old with history of I87.2 PERIPHERAL VENOUS INSUFFICIENCY R60.0 E ANGELITO; SIDE PERFORMED: Bilateral 1) Color flow is present and patency is documented in the following vessels. No DVT or SVT is noted . Common Femoral Vein Deep Femoral Vein Femoral Vein Popliteal Vein Proximal Calf Veins Greater Saph Vein Upper Small Saph Vein 2) There is venous reflux noted at the following venous levels: Right deep femoral vein, left great er saph, left small saph IMPRESSION: Venous insufficiency involving the right deep femoral vein, left greater saphenous vein i n left smaller saphenous vein.
--- NOTE | 2023-11-03 15:57 | US ---
EXAMINATION TYPE: US arterial LE single level DATE OF EXAM: 11/03/2023 3:21 PM CLINICAL INDICATION: Male, 83 years old with history of I87.2 PERIPHERAL VENOUS INSUFFICIENCY R60.0 E ANGELITO; History of: Smoker: Previous Hypertension: Yes Diabetic: No Hyperlipidemia: No TIA/CVA: No Previous Vascular Surgery: No VA: No Vascular Ulcers: No Doppler Waveforms: Right: Multiphasic Left: Multiphasic Right Brachial Pressure: 161 Left Brachial Pressure: 163 Ankle-Brachial Indices: Right: 1.11 Left: 1.21 IMPRESSION: Ankle-brachial indices within normal limits bilaterally.
== END | disposition home or self-care (01) ==
LOC: RADUSWWP 13:04
PROVIDERS: ATTEND Family Medicine
DX: I87.2 Venous insufficiency (chronic) (peripheral) (principal); R60.0 Localized edema
CPT/HCPCS: 93922; 93970

== ENCOUNTER → 2024-05-07 | Outpatient (CLI) | payer MEDICARE, BC ==
--- NOTE | 2024-06-13 15:50 | XR ---
EXAMINATION TYPE: XR chest 2V DATE OF EXAM: 05/07/2024 COMPARISON: Chest radiographs from 04/12/2014, CT chest abdomen pelvis 01/22/2022 TECHNIQUE: XR chest 2V Frontal and lateral views of the chest. CLINICAL INDICATION:Male, 84 years old with history of SOB; FINDINGS: Lungs/Pleura: There is no evidence of pleural effusion, focal consolidation, or pneumothorax. Chronic elevation of the left hemidiaphragm. Pulmonary vascularity: Unremarkable. Heart/mediastinum: Cardiomediastinal silhouette is unremarkable. Atherosclerotic calcifications are seen in the aorta. Musculoskeletal: Multiple level degenerative disc disease changes seen throughout the spine. Bilatera l rib abnormalities corresponding to known metastatic disease. IMPRESSION: No acute cardiopulmonary disease/process.
== END | disposition home or self-care (01) ==
LOC: LABWHC1 10:56
PROVIDERS: ATTEND Family Medicine
DX: E03.9 Hypothyroidism, unspecified (principal); N18.31 Chronic kidney disease, stage 3a
CPT/HCPCS: 71046

== ENCOUNTER → 2024-07-13 | Outpatient (CLI) | payer MEDICARE, BC ==
--- NOTE | 2024-07-13 11:39 | BD ---
EXAMINATION TYPE: Axial Bone Density DATE OF EXAM: 07/13/2024 CLINICAL HISTORY: 84 years old Male. ICD-10 CODE: M81.0 AGE RELATED OSTEO Height: 6 ft Weight: 190 FRAX RISK QUESTIONS: Alcohol (3 or more units per day): no Family History (Parent hip fracture): no Glucocorticoids (More than 3mos): no (Ex: prednisone, prednisolone, methylprednisolone, dexamethasone, and hydrocortisone). History of Fracture in Adulthood: no Secondary Osteoporosis: 1. Type 1 Diabetes: no 2. Hyperthyroidism: no 3. Menopause before 45: na 4. Malnutrition: no 5. Chronic liver disease: no Rheumatoid Arthritis: no Current Tobacco Use: former RISK FACTORS HISTORY OF: Surgery to Spine/Hip(right/left)/Wrist (right/left): no MEDICATIONS: Thyroid Medications: yes Which medication: levothyroxine How Lon years Osteoporosis Medications: none EXAM MEASUREMENTS: Bone mineral densitometry was performed using the [employer] System. Bone mineral density as measured about the Lumbar spine is: ----- L1-L4(G/cm2): 1.794 T Score Values are as follows: ----- L1: 4.2 ----- L2: 6.5 ----- L3: 5.3 ----- L4: 4.3 ----- L1-L4: 5.1 Z Score Values are as follows: ----- L1: 4.4 ----- L2: 6.7 ----- L3: 5.4 ----- L4: 4.5 ----- L1-L4: 5.3 Bone mineral density has: decreased -2.9 % since study of: 2021 Bone mineral density about the R hip (g/cm2): 0.944 Bone mineral density about the L hip (g/cm2): 0.903 T Score values are as follows: -----R Neck: -0.7 -----L Neck: -1.0 -----R Total: -0.2 -----L Total: -0.1 Z Score values are as follows: -----R Neck: 0.5 -----L Neck: 0.2 -----R Total: 0.3 -----L Total: 0.4 Bone mineral density has: decreased -1.3 % since study of: 2021 FRAX%s: The graph provided illustrates a 7.2 % chance for a major osteoporotic fx and a 2.7 % chance for the hips probability for fx in 10 years time. IMPRESSION: Normal (Values between +1 and -1 indicate normal bone mass). Consider repeating this study in 5 year s or sooner if there is some new clinical indication. NOTE: T-SCORE=SD OF THE YOUNG ADULT MEAN. [facility], , 07/13/2024 11:37 AM
== END | disposition home or self-care (01) ==
LOC: RADBDWWP 10:25
PROVIDERS: ATTEND Internal Medicine Hematology & Oncology
DX: M81.0 Age-related osteoporosis without current pathological fracture (principal)
CPT/HCPCS: 77080

== ENCOUNTER 2024-11-24 07:14 | Emergency (ER) | payer MEDICARE, BC ==
--- NOTE | 2024-11-24 07:55 | ED ---
General Adult HPI - General Chief complaint: Abdominal Pain Stated complaint: R sided flank pain Time Seen by Provider: 11/24/24 07:16 Source: patient, family Mode of arrival: ambulatory - History of Present Illness Initial comments: Dictation was produced using [email or web address] dictation software. please excuse any grammatical, word or spelling errors. Chief Complaint: 84-year-old male with acute on chronic abdominal pain History of Present Illness: Patient is an 84-year-old male his past medical history of cholecystectomy states that he has been having acute on chronic abdominal pain. States for years he has been having these intermittent episodes of right-sided abdominal pain. States that over the last couple days it feels like gotten worse. Denies any symptoms at the bedside states that his symptoms are episodic in nature states that it sharp lasting for couple minutes causing him to double over. Not associated with nausea or vomiting. The ROS documented in this emergency department record has been reviewed and confirmed by me. Those systems with pertinent positive or negative responses have been documented in the HPI. All other systems are other negative and/or noncontributory. - Related Data Home Medications Medication Instructions Recorded Confirmed Multivitamin [Men's Multi-Vitamin] 1 tab PO DAILY 04/12/14 01/31/23 Abiraterone Acetate [Zytiga] 1,000 mg PO [id number] 12/29/22 01/31/23 Calcium Carbonate [Calcium] 600 mg PO DAILY 12/29/22 01/31/23 Omeprazole 20 mg PO DAILY 12/29/22 01/31/23 predniSONE 5 mg PO DAILY 12/29/22 01/31/23 Previous Rx's Medication Instructions Recorded Apixaban [Eliquis] 5 mg PO BID #60 tab 12/30/22 Levothyroxine Sodium [Synthroid] 176 mcg PO DAILY@0630 #60 tab 12/30/22 Metoprolol Tartrate [Lopressor] 50 mg PO BID #60 tab 12/30/22 lisinopriL [Zestril] 10 mg PO DAILY #30 tab 12/30/22 Allergies Allergy/AdvReac Type Severity Reaction Status Date / Time No Known Allergies Allergy Verified 11/24/24 07:21 Review of Systems ROS Statement: Those systems with pertinent positive or pertinent negative responses have been documented in the HPI. ROS Other: All systems not noted in ROS Statement are negative. Past Medical History Past Medical History: GERD/Reflux, Hypertension, Thyroid Disorder Additional Past Medical History / Comment(s): prostate cancer with seeds (8-9 years ago), skin cancer, chronic constipation, Past Hx of GERD (stops eating at 6 pm), dysphagia. History of Any Multi-Drug Resistant Organisms: None Reported Past Surgical History: Cholecystectomy, Hernia Repair, Joint Replacement, Orthopedic Surgery Additional Past Surgical History / Comment(s): inguinal Hernia, partial thyroidectomy, bilateral knee replacement, I&D of right side rib area abscess . Past Anesthesia/Blood Transfusion Reactions: No Reported Reaction Past Psychological History: No Psychological Hx Reported Smoking Status: Never smoker Past Alcohol Use History: Occasional Past Drug Use History: None Reported - Past Family History Father Family Medical History: Prostate Disorder Mother Family Medical History: Cancer, Hypertension Additional Family Medical History / Comment(s): colon cancer General Exam - General Exam Comments Initial Comments: PHYSICAL EXAM: General Impression: Alert and oriented x3, not in acute distress HEENT: Normocephalic atraumatic, extra-ocular movements intact, pupils equal and reactive to light bilaterally, mucous membranes moist. Cardiovascular: Heart regular rate and rhythm Chest: Able to complete full sentences, no retractions, no tachypnea Abdomen: abdomen soft, non-tender, non-distended, no organomegaly Musculoskeletal: Pulses present and equal in all extremities, no peripheral edema Motor: no focal deficits noted Neurological: CN II-XII grossly intact, no focal motor or sensory deficits noted Skin: Intact with no visualized rashes Psych: Normal affect and mood Course Vital Signs 11/24/24 11/24/24 11/24/24 07:17 07:45 09:00 Temperature 98.1 F Pulse Rate 55 L 56 L Respiratory 18 16 Rate Blood Pressure 219/107 194/112 209/96 O2 Sat by Pulse 97 96 Oximetry 11/24/24 11/24/24 10:00 10:22 Temperature Pulse Rate 75 58 L Respiratory 18 18 Rate Blood Pressure 192/103 191/97 O2 Sat by Pulse 96 96 Oximetry - Reevaluation(s) Reevaluation #1: 11/24/24 07:54 Chart review was performed. Patient had CT of the abdomen pelvis performed on March 12, 2018. At that time there was a large soft tissue density seen in the right upper quadrant at the margin of the liver. 11/24/24 07:56 Discharge summary reviewed from March 12, 2018 stating that patient at that time was diagnosed with what was described as a phlegmon/abscess in the right abdomen. EKG Findings - EKG Comments: EKG Findings:: My EKG interpretation: Ventricular rate 50, sinus bradycardia,. 188, QRS 132, QTc 442. No FL prolongation, no QTC prolongation, no ST or T-wave changes noted. Compared to EKG from February 01, 2023 with no changes. Overall, this EKG is unremarkable Medical Decision Making - Medical Decision Making Was pt. sent in by a medical professional or institution (, PA, PHYSICIAN RELATIONS SPECIALIST, urgent care, hospital, or alf...) When possible be specific @ -No Did you speak to anyone other than the patient for history (EMS, parent, family, police, friend...)? What history was obtained from this source @ -No Did you review nursing and triage notes (agree or disagree)? Why? @ -I reviewed and agree with nursing and triage notes Were old charts reviewed (outside hosp., previous admission, EMS record, old EKG, old radiological studies, urgent care reports/EKG's, alf records)? Report findings @ -See above Differential Diagnosis (chest pain, altered mental status, abdominal pain women, abdominal pain men, vaginal bleeding, musculoskeletal, weakness, fever, dyspnea, syncope, headache, dizziness, GI bleed, back pain, seizure, CVA, palpatations, mental health)? @ -Differential Abdominal Pain Men: Appendicitis, cholecystitis, diverticulosis, ischemic bowel, pancreatitis, hepatitis, UTI, gastroenteritis, AAA, incarcerated hernia, bowel obstruction, constipation, inflammatory bowel, hepatitis, peptic ulcer disease, splenic infa rction, perforated viscus, testicular torsion, this is not meant to be an all- inclusive list EKG interpreted by me (3pts min.). @ -None done X-rays interpreted by me (1pt min.). @ -None done CT interpreted by me (1pt min.). @ -CT of the abdomen pelvis shows no acute processes U/S interpreted by me (1pt. min.). @ -None done What testing was considered but not performed or refused? (CT, X-rays, U/S, labs)? Why? @ -None What meds were considered but not given or refused? Why? @ -None Was smoking cessation discussed for >3mins.? @ -No Were there social determinants of health that impacted care today? How? (Homelessness, low income, unemployed, alcoholism, drug addiction, transportation, low edu. Level, literacy, decrease access to med. care, half-way, rehab)? @ -No Was there de-escalation of care discussed even if they declined (Discuss DNR or withdrawal of care, Hospice)? DNR status @ -No What co-morbidities impacted this encounter? (DM, HTN, Smoking, COPD, CAD, Cancer, CVA, ARF, Chemo, Hep., AIDS, mental health diagnosis, sleep apnea, morbid obesity)? @ -None Was patient admitted / discharged? Hospital course, mention meds given and route, prescriptions, significant lab abnormalities, going to OR and other pertinent info. @ 84-year-old male presents emergency department abdominal pain. Patient states his symptoms are episodic in nature denies any symptoms at the bedside. Vital signs stable. Abdominal exam is unremarkable. Patient feels at baseline. Laboratory evaluation is unremarkable. CT imaging negative. Patient told to follow-up with primary care doctor. Did you discuss the management of the patient with other professionals (professionals i.e. , PA, PHYSICIAN RELATIONS SPECIALIST, lab, RT, psych nurse, family welfare social work professor, fine wire drawer, teacher, dairy quality assurance officer, cyanide case hardener)? Give summary @ -No Was critical care preformed (if so, how long)? @ -No Undiagnosed new problem with uncertain prognosis? @ -No Drug Therapy requiring intensive monitoring for toxicity (Heparin, Nitro, Insulin, Cardizem)? @ -No Were any procedures done? @ -No Diagnosis/symptom? Acute, or Chronic, or Acute on Chronic? Uncomplicated (without systemic symptoms) or Complicated (systemic symptoms)? @ -Abdominal pain, no high risk features Side effects of treatment? @ -No Exacerbation, Progression, or Severe Exacerbation? @ -No Poses a threat to life or bodily function? How? (Chest pain, USA, VT, pneumonia, PE, COPD, DKA, ARF, appy, cholecystitis, CVA, Diverticulitis, Homicidal, Suicidal, threat to staff... and all critical care pts) @ -No - Lab Data Result diagrams: 11/24/24 07:56 11/24/24 07:56 Lab Results 02/22/25 02/22/25 Range/Units 07:56 07:56 WBC 5.1 (3.8-10.6) k/uL RBC 4.38 (4.30-5.90) m/uL Hgb 12.7 L (13.0-17.5) gm/dL Hct 39.7 (39.0-53.0) % MCV 90.6 (80.0-100.0) fL MCH 28.9 (25.0-35.0) pg MCHC 32.0 (31.0-37.0) g/dL RDW 14.6 (11.5-15.5) % Plt Count 171 (150-450) k/uL MPV 6.7 Neutrophils % 65 % Lymphocytes % 26 % Monocytes % 5 % Eosinophils % 2 % Basophils % 0 % Neutrophils # 3.3 (1.3-7.7) k/uL Lymphocytes # 1.3 (1.0-4.8) k/uL Monocytes # 0.2 (0-1.0) k/uL Eosinophils # 0.1 (0-0.7) k/uL Basophils # 0.0 (0-0.2) k/uL Hypochromasia Slight Sodium 139 (137-145) mmol/L Potassium 4.1 (3.5-5.1) mmol/L Chloride 101 (98-107) mmol/L Carbon Dioxide 32 H (22-30) mmol/L Anion Gap 6 mmol/L BUN 29 H (9-20) mg/dL Creatinine 1.19 (0.66-1.25) mg/dL Est GFR (CKD-EPI)AfAm 65 (>60 ml/min/1.73 sqM) Est GFR (CKD-EPI)NonAf 56 (>60 ml/min/1.73 sqM) Glucose 85 (74-99) mg/dL Calcium 9.2 (8.4-10.2) mg/dL Total Bilirubin 1.0 (0.2-1.3) mg/dL AST 30 (17-59) U/L ALT 17 (4-49) U/L Alkaline Phosphatase 87 (38-126) U/L Total Protein 6.5 (6.3-8.2) g/dL Albumin 3.8 (3.5-5.0) g/dL Lipase 160 (23-300) U/L Disposition Clinical Impression: Abdominal pain Disposition: HOME SELF-CARE Condition: Good Instructions (If sedation given, give patient instructions): Abdominal Pain (ED) Is patient prescribed a controlled substance at d/c from ED?: No Referrals: Narinder Mendez MD [Primary Care Provider] - 1-2 days Time of Disposition: 11:24
[2024-11-24 08:05] LABS: Basophils % (A) 0 %; Eosinophils # (A) 0.1 k/uL (0-0.7); Eosinophils % (A) 2 %; HCT 39.7 % (39.0-53.0); HGB 12.7 gm/dL (13.0-17.5); Hypochromasia Slight; Lymphocytes # (A) 1.3 k/uL (1.0-4.8); Lymphocytes % (A) 26 %; MCH 28.9 pg (25.0-35.0); MCV 90.6 fL (80.0-100.0); Mean Platelet Volume 6.7; Monocytes # (A) 0.2 k/uL (0-1.0); Monocytes % (A) 5 %; Neutrophils # (A) 3.3 k/uL (1.3-7.7); Neutrophils % (A) 65 %; Platelet Count 171 k/uL (150-450); RBC 4.38 m/uL (4.30-5.90); RDW 14.6 % (11.5-15.5); WBC 5.1 k/uL (3.8-10.6)
[2024-11-24 08:19] LABS: ALT 17 U/L (4-49); AST 30 U/L (17-59); African American GFR (CKD) 65 (>60 ml/min/1.73 sqM); Albumin 3.8 g/dL (3.5-5.0); Alkaline Phosphatase 87 U/L (38-126); Anion Gap 6 mmol/L; Blood Urea Nitrogen 29 mg/dL (9-20); Calcium 9.2 mg/dL (8.4-10.2); Carbon Dioxide 32 mmol/L (22-30); Chloride 101 mmol/L (98-107); Glucose 85 mg/dL (74-99); Lipase 160 U/L (23-300); Non-African American GFR(CKD) 56 (>60 ml/min/1.73 sqM); Potassium 4.1 mmol/L (3.5-5.1); Sodium 139 mmol/L (137-145); Total Protein 6.5 g/dL (6.3-8.2)
[2024-11-24 10:01] VITALS: RESP 18
--- NOTE | 2024-11-24 10:49 | CT ---
EXAMINATION TYPE: CT abdomen pelvis w con DATE OF EXAM: 11/24/2024 8:59 AM COMPARISON: CT 01/22/2022 CLINICAL INDICATION: Male, 84 years old with history of R abdominal pain, history of abdominal mass, RT side abdominal pain, hx abdominal mass, prostate ca TECHNIQUE: Axial images were obtained from above the diaphragm to the pubic rami in the axial plane a t 5 mm thick sections. Reconstructed images are reviewed on the computer in the coronal plane. CONTRAST: 80 ml mL of Isovue 300. Study performed without Oral Contrast DLP: 1228 mGycm, Automated exposure control for dose reduction was used. FINDINGS: Limited CT sections are obtained the lung bases. There is elevation of the left diaphragm out of the field of view. Right lung field base appears clear.. CT ABDOMEN: Liver: Normal Spleen: As visualized appears normal Pancreas: Normal Adrenal glands: The adrenal glands are normal. Gallbladder: Surgically absent Kidneys: No masses are evident. No hydronephrosis is present. Large left renal cysts are present. T he largest measuring 13 cm lateral mid left kidney. Small exophytic cyst on the posterior lateral mid right kidney. Delayed images were obtained through the kidneys, which remain unremarkable. Aorta: Vascular calcification is within the aorta. Aorta is tortuous. Inferior vena cava: Normal. CT PELVIS: Loops of bowel within the abdomen and pelvis are normal. This study is without oral contrast limi ting evaluation. Appendix: Normal as visualized. Urinary bladder: Normal. Genitourinary structures: Multiple brachytherapy seeds within the prostate. Osseous structures: Some sclerotic change may be within the L2 and L3 vertebral levels. L1 vertebral level has a Schmorl's node and is somewhat heterogenous. IMPRESSION: 1. Large stable left renal cysts. 2. 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 3. There may be increased elevation of the left diaphragm over the interval. Consider paralyzed diaph ragm. [facility], , 11/24/2024 10:46 AM
[2024-11-24 11:35] VITALS: BP 184/98; PULSE 68; TEMP 97.8
== END 2024-11-24 11:45 | disposition home or self-care (01) ==
LOC: EC 07:14
DX: G89.29 Other chronic pain (principal); N28.1 Cyst of kidney, acquired; R00.1 Bradycardia, unspecified
CPT/HCPCS: 36415; 93005; 80053; 83690; 85025; 74177; 99284; Q9967

== ENCOUNTER → 2025-05-03 | Outpatient (CLI) | payer MEDICARE, BC ==
[2025-05-03 13:52] VITALS: BP 158/76; PULSE 61; RESP 16; TEMP 987.3
[2025-05-03] MEDS: LEUPROLIDE ACETATE 22.5 MG SYRG KIT IM NR (13:55)
== END ==
LOC: PROCWHC3 13:40
PROVIDERS: ATTEND Internal Medicine Hematology & Oncology
DX: C61 Malignant neoplasm of prostate (principal)
CPT/HCPCS: 96402; J9217